=== PATIENT | male | born 1960 | race Caucasian/White ===

== ENCOUNTER 2022-06-18 10:33 | Emergency (ER) | payer BC, OTHER ==
[2022-06-18 12:04] LABS: SARS-COV-2 RT PCR NEGATIVE (NEGATIVE)
--- NOTE | 2022-06-18 12:22 | RAD REPORT ---
EXAM DESCRIPTION: RAD - Chest Pa And Lat (2 Views) - 06/18/2022 12:17 pm CLINICAL HISTORY: COUGH COMPARISON: CHEST PA AND LAT 2 VIEW dated 07/05/2014 FINDINGS: Lines: None. Lungs: No evidence of edema or pneumonia. Calcified nodule in the right lung base. Pleural: No significant pleural effusions or pneumothorax. Cardiac: The heart size is within normal limits. Mediastinum: Within normal limits. Bones: No acute fractures. Other: None IMPRESSION: No acute cardiopulmonary disease.
--- NOTE | 2022-06-18 12:56 | ER ---
Nurse's Notes [facility] Name: Raghu Garcia Age: 61 yrs Sex: Male : 1960 Arrival Date: 06/18/2022 Time: 10:34 Bed 10 Private MD: Franklin Cohen Diagnosis: Cough;Chronic memory problems Presentation: 06/18 10:46 Chief complaint: Patient states: he has had a "nagging cough" for approx 3 weeks now. ap3 and is wanting to get his memory checked because he has been "having memory issues for 2 years". It is reported that over the last two years patient will "space out when talking" and forget where he will going, will revert to old addresses. Patients son states the patient hasn't been seen by a DrGia in years. Coronavirus screen: cough unrelated to allergies. Ebola Screen: No symptoms or risks identified at this time. Initial Sepsis Screen: Does the patient meet any 2 criteria? No. Patient's initial sepsis screen is negative. Does the patient have a suspected source of infection? No. Patient's initial sepsis screen is negative. Risk Assessment: Do you want to hurt yourself or someone else? Patient reports no desire to harm self or others. Onset of symptoms was May 28, 2022. 10:46 Method Of Arrival: Ambulatory ap3 10:46 Acuity: GIDEON 3 ap3 Triage Assessment: 10:50 General: Appears in no apparent distress. Behavior is calm, cooperative. Pain:. Pain: ap3 Denies pain. Neuro: Level of Consciousness is awake, alert, obeys commands, Oriented to person, place, time, situation, Gait is steady. Neuro: Reports memory changes over the last two years. Cardiovascular: Patient's skin is warm and dry. Respiratory: Airway is patent Respiratory effort is even, unlabored, Respiratory pattern is regular, symmetrical. Respiratory: Reports cough that is since the last three weeks. Historical: - Allergies: 10:49 No Known Allergies; ap3 - Home Meds: 10:49 lisinopril Oral for hypertension [Active]; ap3 - PMHx: 10:49 Hypertensive disorder; ap3 - Immunization history:: Client reports having NOT received the Covid vaccine. Flu vaccine is not up to date. - Social history:: Smoking status: Patient reports the use of cigarette tobacco products, smokes one pack cigarettes per day. Screenin:51 [facility] ED Fall Risk Assessment (Adult) History of falling in the last 3 months, ap3 including since admission No falls in past 3 months (0 pts). Abuse screen: Denies threats or abuse. Nutritional screening: No deficits noted. Tuberculosis screening: No symptoms or risk factors identified. Assessment: 12:18 General: Appears in no apparent distress. comfortable, Behavior is calm, cooperative, kr3 appropriate for age. Neuro: Level of Consciousness is awake, alert, obeys commands, Oriented to person, place, time. Cardiovascular: Patient's skin is warm and dry. Respiratory: Airway is patent Trachea midline Respiratory effort is even, unlabored, Respiratory pattern is regular, symmetrical. GI: No signs and/or symptoms were reported involving the gastrointestinal system. : No signs and/or symptoms were reported regarding the genitourinary system. EENT: EENT: No signs and/or symptoms were reported regarding the EENT system. Derm: No signs and/or symptoms reported regarding the dermatologic system. Musculoskeletal: Circulation, motion, and sensation intact. Vital Signs: 10:46 BP 112 / 75; Pulse 70; Resp 17; Temp 98.7; Pulse Ox 100% ; Weight 99.79 kg; Height 5 ap3 ft. 4 in. (162.56 cm); 10:46 Body Mass Index 37.76 (99.79 kg, 162.56 cm) ap3 ED Course: 10:34 Patient arrived in ED. am2 10:34 Franklin Cohen MD is Private Physician. am2 10:49 Triage completed. ap3 10:51 Arm band placed on right wrist. ap3 10:54 Katherine Ortiz, BRANDIE is Primary Nurse. kr3 10:54 Placido Fall DO is Attending Physician. ms3 11:30 COVID-19/FLU A+B/RSV Sent. kr3 12:19 Chest Pa And Lat (2 Views) XRAY In Process Unspecified. EDMS 12:54 Franklin Cohen MD is Referral Physician. ms3 12:54 Iain Oneil MD is Referral Physician. ms3 13:33 No provider procedures requiring assistance completed. Patient did not have IV access ap3 during this emergency room visit. 13:34 Patient has correct armband on for positive identification. Adult w/ patient. ap3 Administered Medications: No medications were administered Medication: 13:34 VIS not applicable for this client. ap3 Outcome: 12:56 Discharge ordered by . ms3 13:34 Discharged to home ambulatory, with family. ap3 13:34 Condition: good 13:34 Discharge instructions given to patient, Instructed on discharge instructions, follow up and referral plans. medication usage, Demonstrated understanding of instructions, follow-up care, medications, Prescriptions given X 1. 13:34 Patient left the ED. ap3 Signatures: Dispatcher [employer] EDMS Layla Liriano am2 Layla Escalante, RN RN ap3 Placido Fall DO DO ms3 Katherine Ortiz, RN RN kr3
--- NOTE | 2022-06-18 12:57 | EDPHYS ---
Physician Documentation [facility] Name: Raghu Garcia Age: 61 yrs Sex: Male : 1960 Arrival Date: 06/18/2022 Time: 10:34 Bed 10 Private MD: Franklin Cohen ED Physician Placido Fall HPI: 06/18 12:56 This 61 yrs old Male presents to ER via Ambulatory with complaints of Altered Mental ms3 Status, Cough. 12:56 61-year-old male with past medical history of hypertension presents with his son for ms3 cough that began 3 weeks prior to arrival. Patient states the symptoms have not improved since onset. Patient has attempted taking [id number] cough syrup. Patient denies shortness of breath, fevers, chills. Patient states that cough is productive of white phlegm. Patient denies pain. Patient denies sick contacts.. Historical: - Allergies: 10:49 No Known Allergies; ap3 - Home Meds: 10:49 lisinopril Oral for hypertension [Active]; ap3 - PMHx: 10:49 Hypertensive disorder; ap3 - Immunization history:: Client reports having NOT received the Covid vaccine. Flu vaccine is not up to date. - Social history:: Smoking status: Patient reports the use of cigarette tobacco products, smokes one pack cigarettes per day. ROS: 12:56 Constitutional: Negative for fever, and chills. Neck: Negative for injury, pain, and ms3 swelling, Cardiovascular: Negative for chest pain, and palpitations. 12:56 Abdomen/GI: Negative for abdominal pain, nausea, vomiting, diarrhea, and constipation, MS/Extremity: Negative for injury and deformity. 12:56 Respiratory: Positive for cough. 12:56 Neuro: Positive for memory problems x 2 years. Exam: 12:56 Constitutional: This is a well developed, well nourished patient who is awake, alert, ms3 and in no acute distress. Head/Face: Normocephalic, atraumatic. Eyes: Pupils equal round and reactive to light, extra-ocular motions intact. Lids and lashes normal. Conjunctiva and sclera are non-icteric and not injected. Periorbital areas with no swelling, redness, or edema. Neck: Trachea midline, no cervical lymphadenopathy. Supple, full range of motion without nuchal rigidity, or vertebral point tenderness. No Meningismus. Chest/axilla: Normal chest wall appearance and motion. Nontender with no deformity. Cardiovascular: Regular rate and rhythm with a normal S1 and S2. No gallops, murmurs, or rubs. Normal PMI, no JVD. No pulse deficits. Respiratory: Lungs have equal breath sounds bilaterally, clear to auscultation and percussion. No rales, rhonchi or wheezes noted. No increased work of breathing, no retractions or nasal flaring. Abdomen/GI: Soft, non-tender, with normal bowel sounds. No distension or tympany. No guarding or rebound. No evidence of tenderness throughout. Skin: Warm, dry with normal turgor. Normal color with no rashes, no lesions, and no evidence of cellulitis. MS/ Extremity: Pulses equal, no cyanosis. Neurovascular intact. Full, normal range of motion. Vital Signs: 10:46 BP 112 / 75; Pulse 70; Resp 17; Temp 98.7; Pulse Ox 100% ; Weight 99.79 kg; Height 5 ap3 ft. 4 in. (162.56 cm); 10:46 Body Mass Index 37.76 (99.79 kg, 162.56 cm) ap3 MDM: 11:04 Patient medically screened. ms3 12:56 Differential Diagnosis: PNA vs Flu vs COVID vs CHF. . ED course: Less likely congestive ms3 heart failure as patient is without history of congestive heart failure, no pedal edema, no pulmonary edema on chest x-ray. Patient follow-up with his primary care physician in 2 to 3 days. Patient referred to Dr. Oneil, neurology, for chronic memory problems. Discussed plan with patient and his son. They understand and agree with plan. All questions were answered. Return precautions discussed include worsening symptoms, or any other concerns. Patient given prescription for Tessalon Perles.. 13:01 Data reviewed: vital signs, nurses notes, lab test result(s), radiologic studies, plain ms3 films. Counseling: I had a detailed discussion with the patient and/or guardian regarding: the historical points, exam findings, and any diagnostic results supporting the discharge/admit diagnosis, radiology results, the need for outpatient follow up, to return to the emergency department if symptoms worsen or persist or if there are any questions or concerns that arise at home. 01/06 11:05 Order name: COVID-19/FLU A+B/RSV; Complete Time: 12:07 ms3 06/18 11:05 Order name: Chest Pa And Lat (2 Views) XRAY; Complete Time: 12:38 ms3 Administered Medications: No medications were administered Disposition Summary: 06/18/22 12:56 Discharge Ordered Location: Home ms3 Condition: Stable ms3 Diagnosis - Cough ms3 - Chronic memory problems ms3 Followup: ms3 - With: Franklin Cohen MD - When: 2 - 3 days - Reason: Recheck today's complaints Followup: ms3 - With: Iain Oneil MD - When: 2 - 3 days - Reason: Recheck today's complaints Discharge Instructions: - Discharge Summary Sheet ms3 - Cough, Adult ms3 Forms: - Medication Reconciliation Form ms3 - Thank You Letter ms3 - Antibiotic Education ms3 - Prescription Opioid Use ms3 Prescriptions: - Tessalon Perles 100 mg Oral Capsule - take 1 capsule by ORAL route every 8 hours As needed; 15 capsule; Refills: 0, ms3 Product Selection Permitted Signatures: Dispatcher [employer] Layla Jaime RN RN ap3 Placido Fall DO DO ms3
[2022-06-18 13:40] VITALS: BP 112/75; TEMP 98.7; O2SAT 100
== END 2022-06-18 13:34 | disposition home or self-care (01) ==
LOC: ER 10:33
DX: R05.9 Cough, unspecified (principal); R41.3 Other amnesia; Z20.822 Contact with and (suspected) exposure to COVID-19; I10 Essential (primary) hypertension; F17.210 Nicotine dependence, cigarettes, uncomplicated
CPT/HCPCS: 0241U; 71046; 99283

== ENCOUNTER 2023-04-30 17:31 | Emergency (ER) | payer OTHER ==
--- OUTSIDE RECORDS SUMMARY | 2023-04-30 17:33 | XMS REPORT | Continuity of Care Document ---
:1960 Author Organization [facility] t Address [address] [place] [address] Care Team Providers Name Role Phone Pcp, Patient Does Not Have A Primary Care Physician [id number] KAUR Attending Clinician Unavailable Omaira Attending Clinician Unavailable Doctor Unassigned, [place] Attending Clinician Unavailable KEITH SIMMONS Attending Clinician Cindy Keith Gonzalez MD Attending Clinician KAUR Admitting Clinician Unavailable Omaira Admitting Clinician Unavailable KEITH SIMMONS Admitting Clinician Cindy Keith Gonzalez MD Admitting Clinician Payers Payer Name Policy Type Policy Number Effective Date Expiration Date [facility] [id number] Problems Condition Condition Condition Status Onset Resolution Last Treating Co mments Source Name Details Category Date Date Treatment Clinician Date Hyperlipid Hyperlipid Problem Active [facility] emia emia 5-10 da [facility] Body mass Body Mass Problem Active [facility] [place] index 30+ Index 30+ 5-10 da - obesity - Obesity 00:00: Epis copy clerk 00 al Health Outreac [facility] Program Chronic Chronic Problem Active [place] low back Low Back 5-10 da pain Pain 00:00: [facility] Screening Screening Problem Active [place] for for 5-10 da malignant Malignant 00:00: Epis copy clerk neoplasm Neoplasm 00 al of of Health respirator Respirator Ou treac y tract y Tract h Program Screening Screening Problem Active [place] for for 5-10 da malignant Malignant 00:00: Epis copy clerk neoplasm Neoplasm 00 al of of Health prostate Prostate Outrea c h Program Screening Screening Problem Active [place] for for 5-10 da malignant Malignant 00:00: Epis copy clerk neoplasm Neoplasm 00 al of colon of Colon Health Outreac h Program Pain of Pain of Problem Active [place] right Right 5-10 da shoulder Shoulder 00:00: [facility] p joint Joint 00 al Health Outreac [facility] Program Mixed Mixed Problem Active [place] anxiety Anxiety 5-04 da and and 00:00: [facility] depressive Depressive 00 al disorder Disorder Health Outreac h Program Smokes Smokes Problem Active [place] tobacco Tobacco 5-04 da daily Daily 00:00: [facility] Essential Essential Problem Active [place] hypertensi Hypertensi 5-04 da on on 00:00: [facility] Forgetful Forgetful Problem Active [place] 5-04 da 00:00: [facility] Chest pain Chest pain Disease Active U nivers 4-23 ity of 00:00: [address] Allergies, Adverse Reactions, Alerts Allergy Allergy Status Severity Reaction(s) Onset Inactive Treating Comm ents Source Name Type Date Date Clinician NO KNOWN Drug Active Univers ALLERGIE Class ity of S [facility] Social History Social Habit Start Date Stop Date Quantity Comments Source History of tobacco Cigarette Smoker University of use [facility] Exposure to 2022-09-23 2022-10-03 Not sure University of SARS-CoV-2 (event) 00:00:00 21:12:00 [facility] Tobacco use and 2022-10-03 2022-10-03 User of Universit y of exposure 00:00:00 00:00:00 smokeless [facility] Alcohol intake 2022-10-03 2022-10-03 Current drinker Unive rsity of 00:00:00 00:00:00 of alcohol [facility] (finding) [place] Alcohol Comment 2022-10-03 2022-10-03 minimal, Universit y of 00:00:00 00:00:00 socially [facility] Cigarettes smoked 2022-10-03 2022-10-03 Univers ity of current (pack per 00:00:00 00:00:00 [facility] ) - Reported Branch Cigarette 2022-10-03 2022-10-03 University of pack-years 00:00:00 00:00:00 [facility] Sex Assigned At [birth year] Universit y of 00:00:00 00:00:00 [facility] Smoking Status Start Date Stop Date Source Heavy Tobacco Smoker Bhupinder Francisco [employer] [facility] Smokes tobacco daily 2022-10-03 00:00:00 Univers ity [facility] Medications Ordered Filled Start Stop Current Ordering Indication Dosage Frequency Signature Comments Components Source Medication Medication Date Date Medication? Clinician (SIG) Name Name eligio Yes 40mg 40 mg, Univ ers n (LIPITOR) 4-25 Oral, QHS, it y of tablet 40 02:00: First dose [place] mg 00 on Mon Medical 10/04/22 at [place] 2100, Until Discontinu ed, Routine metoprolol Yes 12.5mg 12.5 mg, U nivers tartrate 4-25 Oral, BID, ity o f (LOPRESSOR) 01:00: First dose [place] tablet 12.5 00 on Mon Medica l mg 10/04/22 at [place] 2000, Until Discontinu ed, Routine aspirin 81 Yes [id number] 81mg Take 1 U nivers mg chewable 4-25 tablet by ity of tablet 00:00: mouth in [place] 00 the Medical morning. Branch nicotine 7 Yes [id number] 1{patch Apply 1 Univers mg/24 hr 4-25 } Patch to ity of patch 00:00: area(s) [place] 00 every 24 Medical (twenty-fo Branch ur) hours. aspirin 81 2022-0 Yes [id number] 81mg Take 1 U nivers mg chewable 4-25 tablet by ity of tablet 00:00: mouth in [place] 00 the Medical morning. Branch nicotine 7 Yes [id number] 1{patch Apply 1 Univers mg/24 hr 425 } Patch to ity of patch 00:00: area(s) [place] 00 every 24 Medical (twenty-fo Branch ur) hours. nicotine 2022-0 Yes 1{patch 1 Patch, Un neto (NICODERM) 24 } Topical, ity o f 7 mg/24 hr 20:15: Administer [place] patch 1 00 over 24 Medical Patch Hours, Branch Q24H, First dose on [facility] 10/04/22 at 1515, Until Discontinu ed, Routine lisinopriL 2022-0 Yes 20mg Take 1 Unive rs 20 mg 24 tablet by ity of tablet 17:19: mouth in [place] 43 the Medical morning. Branch lisinopriL 2022-0 Yes 20mg Take 1 Unive rs 20 mg 24 tablet by ity of tablet 17:19: mouth in [place] 43 the Medical morning. Branch aspirin 2022-0 Yes 81mg 81 mg, Univers chewable 10-04 Oral, ity of tablet 81 14:00: DAILY, [place] mg 00 First dose Medical on [facility] 10/04/22 at 0900, Until Discontinu ed, Routine lisinopriL 2022-0 Yes 2.5mg 2.5 mg, Uni vers (PRINIVIL,Z 10-04 Oral, ity of ESTRIL) 14:00: DAILY, [place] tablet 2.5 00 First dose Med ical mg on [facility] 10/04/22 at 0900, Until Discontinu ed, Routine enoxaparin 2022-0 Yes 40mg 40 mg, Unive rs (LOVENOX) 10-04 Subcutaneo ity of injection 14:00: us, DAILY, [place] 40 mg 00 First dose Medical on [facility] 10/04/22 at 0900, Until Discontinu ed, Routine KCL 2022-0 2022- No 20meq 20 mEq, Univers (KLOR-CON 10-04 Oral, ity of M20) tablet 05:15: 04:31 ONCE, 1 [place] 20 mEq 00 :00 dose, On Medical [facility] 10/04/22 at 0015, Routine magnesium 2022-0 2022- No 2g 2 g, IV Univ ers sulfate in 10-04 Piggyback, it y of water 2 05:00: 05:32 Administer Ced as gram/50 mL 00 :00 over 60 Medica l (4 %) Minutes, Branch infusion 2 ONCE, 1 g dose, On 10/04/22 at 0000, Routine acetaminoph 0 Yes 650mg 650 mg, Un neto en 4-24 Oral, ity of (TYLENOL) 02:47: Q6HPRN, [place] tablet 650 25 Starting Medic al mg on Sun Branch 10/03/22 at 2147, Until Discontinu ed, Routine, Pain (scale 1-3) atorvastati 0 Yes [id number] 40mg Take 1 Univers n 40 mg 4-24 tablet by ity of tablet 00:00: mouth at [place] 00 bedtime. Medical Branch metoprolol Yes [id number] 12.5mg Take 0.5 Univers tartrate 25 4-24 tablets by it y of mg tablet 00:00: [place] the Medical morning Branch and 0.5 tablets in the evening. atorvastati Yes [id number] 40mg Take 1 Univers n 40 mg 4-24 tablet by ity of tablet 00:00: mouth at [place] 00 bedtime. Medical Branch metoprolol Yes [id number] 12.5mg Take 0.5 Univers tartrate 25 4-24 tablets by it y of mg tablet 00:00: [place] the Medical morning Branch and 0.5 tablets in the evening. cholecalcif cholecalcif No 1capsul Q1D cholecalci [place] delaney delaney e(s) ferol da (vitamin (vitamin (vitamin Epi scop D3) 125 mcg D3) 125 mcg D3) 125 al (5,000 (5,000 mcg (5,000 Healt h unit) unit) unit) Outreac capsule capsule capsule h Take 1 Take 1 Take 1 Program capsule capsule capsule every day every day every day by oral by oral by oral route. route. route. lisinopril lisinopril No 1 Q1D lisinopril [place] 10 mg 10 mg 10 mg da tablet Take tablet Take tablet [facility] 1 tablet 1 tablet Take 1 al every day every day tablet Hea lth by oral by oral every day Outr eac route. route. by oral h route. Program sertraline sertraline No sertraline [place] 50 mg 50 mg 50 mg da tablet TAKE tablet TAKE tablet [facility] 1 TABLET BY 1 TABLET BY TAKE 1 al MOUTH ONCE MOUTH ONCE TABLET BY Health DAILY DAILY MOUTH ONCE Outreac DAILY h Program Vitamin B12 Vitamin B12 No Vitamin [place] 1000 mcg 1000 mcg B12 1000 da tablet 1 tablet 1 mcg tablet E piscop p.o. daily p.o. daily 1 p.o. a l daily Health Outreac h Program lisinopril lisinopril No lisinopril [place] 20 mg 20 mg 20 mg da tablet TAKE tablet TAKE tablet [facility] 1 TABLET BY 1 TABLET BY TAKE 1 al MOUTH ONCE MOUTH ONCE TABLET BY Health DAILY DAILY MOUTH ONCE Outreac DAILY h Program sertraline sertraline No sertraline [place] 50 mg 50 mg 50 mg da tablet TAKE tablet TAKE tablet [facility] 1 TABLET BY 1 TABLET BY TAKE 1 al MOUTH ONCE MOUTH ONCE TABLET BY Health DAILY DAILY MOUTH ONCE Outreac DAILY h Program lisinopril lisinopril No lisinopril [place] 20 mg 20 mg 20 mg da tablet TAKE tablet TAKE tablet [facility] 1 TABLET BY 1 TABLET BY TAKE 1 al MOUTH ONCE MOUTH ONCE TABLET BY Health DAILY DAILY MOUTH ONCE Outreac DAILY h Program sertraline sertraline No sertraline [place] 50 mg 50 mg 50 mg da tablet TAKE tablet TAKE tablet [facility] 1 TABLET BY 1 TABLET BY TAKE 1 al MOUTH ONCE MOUTH ONCE TABLET BY Health DAILY DAILY MOUTH ONCE Outreac DAILY h Program Vital Signs Vital Name Observation Time Observation Value Comments Source BP Diastolic 2022-12-13 00:00:00 68 mm[Hg] [facility] Height 2022-12-13 00:00:00 64 [in_i] [facility] BMI (Body Mass 2022-12-13 00:00:00 34.7 kg/m2 [facility] 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 Index) [facility] BP Systolic 2022-12-13 00:00:00 104 mm[Hg] [facility] Body Weight 2022-12-13 00:00:00 3238 [oz_av] [facility] BP Diastolic 2022-10-20 00:00:00 64 mm[Hg] [place] [facility] Height 2022-10-20 00:00:00 64 [in_i] [place] [facility] BMI (Body Mass 2022-10-20 00:00:00 35.4 kg/m2 [facility] 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 Index) [facility] BP Systolic 2022-10-20 00:00:00 99 mm[Hg] [place] [facility] Body Weight 2022-10-20 00:00:00 3300 [oz_av] [place] [facility] BP Diastolic 2022-10-14 00:00:00 74 mm[Hg] [place] [facility] Height 2022-10-14 00:00:00 64 [in_i] [place] [facility] BMI (Body Mass 2022-10-14 00:00:00 35.2 kg/m2 [facility] 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 Index) [facility] BP Systolic 2022-10-14 00:00:00 111 mm[Hg] [place] [facility] Body Weight 2022-10-14 00:00:00 3282 [oz_av] [place] [facility] Systolic blood 2022-10-04 16:03:00 110 [facility]Hg[facility] 2022-10-04 16:03:00 74 mm[facility]Hg] [facility] 2022-10-04 16:03:00 61 /min [facility] Body temperature 2022-10-04 16:03:00 36.44 Tonia [facility] Respiratory rate 2022-10-04 16:03:00 18 /min [facility] Oxygen saturation in 2022-10-04 16:03:00 97 /min [facility] Arterial blood by [facility] Pulse oximetry Branch Body weight 2022-10-04 02:20:00 90.629 kg [facility] Procedures Procedure Date / Time Performing Clinician Source Performed LDCT, chest, for lung 2022-12-13 00:00:00 [facility] cancer screening [facility] LDCT, chest, for lung 2022-10-20 00:00:00 [facility] 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 [facility] cancer screening [facility] XR, shoulder, 2 or more 2022-10-14 00:00:00 Arron mitchella [facility] XR, lumbosacral spine, 2022-10-14 00:00:00 Calebelizabeth titusnatasha [facility] 2 or 3 view Health Outreach Program EXTERNAL PROVIDER 2022-10-11 05:01:00 Doctor Unassigned, No [facility] RECORDS Name Medical Branch TROPONIN I 2022-10-04 09:33:00 Brock [facility] MAGNESIUM 2022-10-04 03:[facility]22-10-04 [facility] THYRO[facility] 2022-10-04 03:21:00 Jhonatan Gutiérrez [facility] HORMONE [facility] Branch HEPATIC FUNCTION PANEL 2022-10-04 03:21:[address] [facility] ([id number]) (ALB,T.PRO,BILI Medical Branch T,BU/BC,ALT,AST,ALK PHOS) BASIC METABOLIC PANEL 2022-10-04 03:21:00 Brock [facility] (NA, K, CL, CO2, Medical Branch GLUCOSE, BUN, CREATININE, CA) LIPID PANEL 2022-10-04 03:21:[address] [facility] ([id number])(TOTAL Medical Branch CHOLESTEROL, TRIGLYCERIDES, HDL) CBC WITH DIFF 2022-10-04 03:21[facility] GLYCOSYLATED HEMOGLOBIN 2022-10-04 03:21:00 [facility] PROTHROMBIN TIME / INR 2022-10-04 03:21:00 Brock Jhonatan [facility] Plan of Care Planned Activity Planned Date Details Comments Source Future Scheduled 2023-04-13 HIV 1 + 2, meaningful [place] Test 00:00:00 use set [code = [facility] + 2, meaningful use Outreach Program set] Future Scheduled 2023-04-13 vitamin D, [place] Test 00:00:00 25-hydroxy, total, [facility] serum [code = vitamin Outrea Program D, 25-hydroxy, total, serum] Future Scheduled 2023-04-13 RPR (rapid plasma [place] 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 Test 00:00:00 reagin), serum [code [facility] = RPR (rapid plasma Outreach Program reagin), serum] Future Scheduled 2023-04-13 testosterone, free + [place] Test 00:00:00 total, serum [code = [facility] testosterone, free + Outreac h Program total, serum] Future Scheduled 2023-04-13 lh + FSH, serum [code [place] Test 00:00:00 = lh + FSH, serum] [facility] Outreach Progra Future Scheduled 2023-04-13 prolactin, serum [place] Test 00:00:00 [code = prolactin, [facility] serum] Outreach Progra m Future Scheduled 2023-04-13 CMP, serum or plasma [place] Test 00:00:00 [code = CMP, serum or [facility] plasma] Outreach Progra m Future Scheduled 2023-04-13 CBC w/ auto diff [place] Test 00:00:00 [code = [facility]/ [facility]] Outreach Progra m Future Scheduled 2023-04-13 lipid panel, serum [place] Test 00:00:00 [code = lipid panel, [facility] serum] Outreach Progra m Future Scheduled 2023-04-13 urinalysis complete, [place] Test 00:00:00 reflex culture [code [facility] = urinalysis Outreach Progra complete, reflex culture] Diagnostic Test 2022-10-20 noninvasive [place] Pending 00:00:00 colorectal cancer DNA [facility] + occult blood Outreach Prog som screening, QL, stool [code = noninvasive colorectal cancer DNA + occult blood screening, QL, stool] Encounters Start End Encounter Admission Attending Care Care Encounter Source Date/Time Date/Time Type Type Clinicians Facility Department ID 2022-12-13 2022-12-13 Outpatient SHIMEK_MARY MEHOP [facility]OP [id number] [place] 00:00:00 00:00:00 _ANN [id number] [facility] 2022-12-13 2022-12-13 Outpatient AYO WESLEY MEHOP [id number] [place] 00:00:00 00:00:00 _ANN [id number] [facility] 2022-12-13 2022-12-13 Outpatient AYO WESLEY MEHOP [id number] [place] 00:00:00 00:00:00 _ANN [id number] [facility] 2022-12-13 2022-12-13 Outpatient AYO LESTERHOP MEHOP [id number] [place] 00:00:00 00:00:00 _ANN [id number] [facility] 2022-12-13 2022-12-13 Zuri Erwin [facility] [place] - [id number] [place] 00:00:00 00:00:00 Bhupinder Brown FORM LAYER: 1700 [facility] [address] [id number] h , Ph. Program 2022-12-07 2022-12-07 Outpatient AYO WESLEY MEHOP [id number] [place] 00:00:00 00:00:00 _ANN [id number] da [facility] 2022-12-06 2022-12-06 Outpatient Omaira WESLEY [facility] 124 [id number] [place] 00:00:00 00:00:00 [id number] da [facility] 2022-10-20 2022-10-20 Jerome [facility] [place] - [id number] M atagor 00:00:00 00:00:00 Sobia: [address], [facility] [address] [facility] ac , Ph. h (979) Program 2022-10-15 2022-10-15 Outpatient Omaira [facility] [id number] [place] 00:00:00 00:00:00 [id number] da [facility] 2022-10-14 2022-10-14 Outpatient Omaira [facility] [id number] [place] 00:00:00 00:00:00 [id number] da [facility] 2022-10-14 2022-10-14 Outpatient Sobia_Jerome [facility] [id number] [place] 00:00:00 00:00:00 [id number] [facility] 2022-10-14 [facility]22[facility]10-[facility] [id number] M at[facility]or 00:00:00 00:00:00 [place]: 1700 Bhupinder Taylor [facility] [place], [facility] [address] [facility] , Ph. h (979) Program 2022-10-13 2022-10-13 Outpatient Sobia_Jerome [facility] 124 [id number] [place] 00:00:00 00:00:00 [id number] da [facility] 2022-10-11 2022-10-11 Orders Doctor STACIE [id number] Univers 00:00:00 00:00:00 Only Unassigned, SILVER [id number] ity of [place] [facility] [id number] Ced as [id number] [place] [id number] Branch 2022-10-06 2022-10-06 Outpatient Sobia_Jerome [facility] 124 [id number] [place] 00:00:00 00:00:00 [id number] [facility] 2022-10-06 2022-10-06 Outpatient Sobia_Jerome [facility] 124 [id number] [place] 00:00:00 00:00:00 [id number] [facility] 2022-10-06 2022-10-06 Outpatient Sobia_Jerome [facility] 124 [id number] [place] 00:00:00 00:00:00 [id number] [facility] 2022-10-03 2022-10-04 [facility] [id number] [facility] 20:46:00 17:19:00 MOSTAFA ity of [facility] 2022-10-03 2022-10-04 [facility] COLEEN Simmons [id number] [facility] 20:46:00 17:19:00 Encounter Keith SHEPPARD [id number] ity of [facility] [id number] [facility] [id number] [place] [address] Branch Results Test Description Test Time Test Comments Results Result Comments Source Free T4 and TSH panel - Serum or Plasma 2022-10-16 00:00:00 Test Item Value Reference Range Interpretation Comme nts Thyrotropin [Units/volume] in Serum or Plasma by 0.791 uIU/mL 0.450 -4.500 Detection limit <= 0.005 mIU/L (test code = 18359-5) Thyroxine (T4) free [Mass/volume] in Serum or Plasma 1.26 NG/dL 0 .82-1.77 (test code = 3024-7) [facility] Outreach [facility] W Auto Differential panel - Blood 2022-10-16 00:00:00 Test Item Value Reference Range Interpretation Comments Leukocytes [#/volume] in Blood 6.1 x10e3/uL 3.4-10.8 by Automated count (test code = 6690-2) Erythrocytes [#/volume] in 5.24 x10e6/uL 4.14-5.80 Blood by Automated count (test code = 789-8) Hemoglobin [Mass/volume] in 16.6 g/dL 13.0-17.7 Blood (test code = 718-7) Hematocrit [Volume Fraction] of 46.7 % 37.5-51.0 Blood by Automated count (test code = 4544-3) Erythrocyte mean corpuscular 89 fL 79-97 volume [Entitic volume] by Automated count (test code = 787-2) Erythrocyte mean corpuscular 31.7 pg 26.6-33.0 hemoglobin [Entitic mass] by Automated count (test code = 785-6) Erythrocyte mean corpuscular 35.5 g/dL 31.5-35.7 hemoglobin concentration [Mass/volume] by Automated count (test code = 786-4) Erythrocyte distribution width 13.0 % 11.6-15.4 [Ratio] by Automated count (test code = 788-0) Platelets [#/volume] in Blood 209 x10e3/uL 150-450 by Automated count (test code = 777-3) Neutrophils/100 leukocytes in 68 % not estab. Blood by Automated count (test code = 770-8) Lymphocytes/100 leukocytes in 22 % not estab. Blood by Automated count (test code = 736-9) Monocytes/100 leukocytes in 7 % not estab. Blood by Automated count (test code = 5905-5) Eosinophils/100 leukocytes in 2 % not estab. Blood by Automated count (test code = 713-8) Basophils/100 leukocytes in 1 % not estab. Blood by Automated count (test code = 706-2) immature cells (test code = research and development specialist immature cells) Neutrophils [#/volume] in Blood 4.2 x10e3/uL 1.4-7.0 by Automated count (test code = 751-8) Lymphocytes [#/volume] in Blood 1.3 x10e3/uL 0.7-3.1 by Automated count (test code = 731-0) Monocytes [#/volume] in Blood 0.4 x10e3/uL 0.1-0.9 by Automated count (test code = 742-7) Eosinophils [#/volume] in Blood 0.1 x10e3/uL 0.0-0.4 by Automated count (test code = 711-2) Basophils [#/volume] in Blood 0.1 x10e3/uL 0.0-0.2 by Automated count (test code = 704-7) Immature granulocytes/100 0 % not estab. leukocytes in Blood by Automated count (test code = 45354-9) Immature granulocytes 0.0 x10e3/uL 0.0-0.1 [#/volume] in Blood by Automated count (test code = 83960-2) Nucleated erythrocytes/100 research and development specialist leukocytes [Ratio] in Blood by Automated count (test code = 92404-3) Morphology [Interpretation] in research and development specialist Blood Narrative (test code = 97356-7) [facility] panel - Serum or Xuayco0165-04-23 00:00:00 Test Item Value Reference Range Interpretation Comments Glucose [Mass/volume] in Serum 100 mg/dL 70-99 H or Plasma (test code = 2345-7) Urea nitrogen [Mass/volume] in 10 mg/dL 8-27 Serum or Plasma (test code = 3094-0) Creatinine [Mass/volume] in 0.97 mg/dL 0.76-1.27 Serum or Plasma (test code = 2160-0) Glomerular filtration 88 mL/min/1.73 >59 rate/1.73 sq M.predicted [Volume Rate/Area] in Serum, Plasma or Blood by Creatinine-based formula (CKD-EPI 2020) (test code = 04804-9) Urea nitrogen/Creatinine [Mass 10 10-24 Ratio] in Serum or Plasma (test code = 3097-3) Sodium [Moles/volume] in Serum 138 mmol/L 134-144 or Plasma (test code = 2951-2) Potassium [Moles/volume] in 4.4 mmol/L 3.5-5.2 Serum or Plasma (test code = 2823-3) Chloride [Moles/volume] in 100 mmol/L 96-106 Serum or Plasma (test code = 2074-0) Carbon dioxide, total 25 mmol/L 20-29 [Moles/volume] in Serum or Plasma (test code = 2027-) Calcium [Mass/volume] in Serum 9.2 mg/dL 8.6-10.2 or Plasma (test code = 55428-6) Protein [Mass/volume] in Serum 7.0 g/dL 6.0-8.5 or Plasma (test code = 2885-2) Albumin [Mass/volume] in Serum 4.5 g/dL 3.8-4.8 or Plasma (test code = 1751-7) Globulin [Mass/volume] in 2.5 g/dL 1.5-4.5 Serum by calculation (test code = 53013-6) Albumin/Globulin [Mass Ratio] 1.8 1.2-2.2 in Serum or Plasma (test code = 1759-0) Bilirubin.total [Mass/volume] 0.7 mg/dL 0.0-1.2 in Serum or Plasma (test code = 1974-2) Alkaline phosphatase 72 IU/L 44-121 [Enzymatic activity/volume] in Serum or Plasma (test code = 6768-6) Aspartate aminotransferase 11 IU/L 0-40 [Enzymatic activity/volume] in Serum or Plasma (test code = 1920-8) Alanine aminotransferase 11 IU/L 0-44 [Enzymatic activity/volume] in Serum or Plasma (test code = 1742-6) [facility] - Serum or Plasma 2022-10-16 00:00:00 Test Item Value Reference Range Interpretation Comments Cholesterol [Mass/volume] in Serum 159 mg/dL 100-199 or Plasma (test code = 2093-3) Triglyceride [Mass/volume] in Serum 91 mg/dL 0-149 or Plasma (test code = 2571-8) Cholesterol in HDL [Mass/volume] in 39 mg/dL >39 L Serum or Plasma (test code = 2085-9) Cholesterol in VLDL [Mass/volume] 17 mg/dL 5-40 in Serum or Plasma by calculation (test code = 28223-7) Cholesterol in LDL [Mass/volume] in 103 mg/dL 0-99 H Serum or Plasma by calculation (test code = 30704-9) Laboratory comment [Text] in Report research and development specialist Narrative (test code = 90763-6) [facility]Cyanocobalamin [Interpretation] in Serum or [id number] 00:00:00 Test Item Value Reference Range Interpretation Comments Cobalamin (Vitamin B12) 350 pg/mL 232-1245 [Mass/volume] in Serum or Plasma (test code = 2132-9) Folate [Mass/volume] in Serum or 3.8 NG/mL >3.0 Plasma (test code = 2284-8) [facility], serum or [id number] 00:00:00 Test Item Value Reference Range Interpretation Comments Prostate specific Ag [Mass/volume] 0.3 NG/mL 0.0-4.0 in Serum or Plasma (test code = 2857-1) reflex criteria (test code = reflex comment criteria) [facility] Center[facility]em[facility] A1c/Hemoglobin.total in [id number] 00:00:00 Test Item Value Reference Range Interpretation Comments Hemoglobin A1c/Hemoglobin.total in 5.1 % 4.8-5.6 Blood (test code = 4548-4) [facility]25-Hydroxyvitamin D3+25- Hydroxyvitamin D2 [Mass/volume] in Serum or [id number] 00:00:00 Test Item Value Reference Range Interpretation Comments 25-Hydroxyvitamin 25.3 NG/mL 30.0-100.0 L D3+25-Hydroxyvitamin D2 [Mass/volume] in Serum or Plasma (test code = 19560-0) [facility] CenterNatriuretic peptide B [Mass/volume] in Serum or [id number] 00:00:00 Test Item Value Reference Range Interpretation Comments Natriuretic peptide B 12.2 pg/mL 0.0-100.0 [Mass/volume] in Serum or Plasma (test code = 85130-3) [facility] Center[facility]rate [Mass/volume] in Serum or [id number] 00:00:00 Test Item Value Reference Range Interpretation Comments Urate [Mass/volume] in Serum or 5.8 mg/dL 3.8-8.4 Plasma (test code = 3084-1) [facility] Centercardi[facility] assessment panel, [id number] 00:00:00 Test Item Value Reference Range Interpretation Comments Interpretation and review of laboratory note results (test code = 95084-9) Report (test code = 97147-9) . [facility] CenterTRMANAS [id number] 10:09:21 Test Item Value Reference Range Interpretation Comments TROPONIN I (test code = 0.003 ng/mL <=0.034 [id number]) TERESA (test code = TERESA) Reference (Normal) Range (defined by the 99th percentile reference limit): <= 0.034 ng/mL Note: Cardiac troponin begins to rise 3-4 hours after the onset of ischemia. Repeat in 4-6 hours if the sample was drawn within 3-4 hours of the onset of the symptom and found normal. Diagnosis of myocardial injury is made with acute changes in cTn concentrations with at least one serial sample above the 99th percentile upper reference limit (URL), taken together with the patient's clinical presentation. Biotin has been reported to cause a negative bias, interpret results relative to patient's use of biotin. Lab Interpretation Normal (test code = 08871-7) [facility]
[2023-04-30] MEDS ORDERED: HYDROCODONE/CHLORPHEN 5 ML/OSYR ONE (18:06)
[2023-04-30] MEDS ORDERED: IPRATROPIUM BROM 0.5MG/2.5ML ONE (18:06)
[2023-04-30] MEDS ORDERED: ALBUTEROL 2.5 MG/3 ML NEB SOL ONE (18:06)
--- NOTE | 2023-04-30 19:04 | RAD REPORT ---
EXAM DESCRIPTION: Saundra Single View04/30/2023 6:56 pm CLINICAL HISTORY: Cough COMPARISON: June 2022 FINDINGS: The lungs appear clear of acute infiltrate. The heart is normal size IMPRESSION: No acute abnormalities displayed
--- NOTE | 2023-04-30 19:11 | ER ---
Nurse's Notes [facility] Name: Raghu Garcia Age: 62 yrs Sex: Male : 1960 Arrival Date: 04/30/2023 Time: 17:31 Bed 12 Private MD: Diagnosis: Acute bronchitis, unspecified Presentation: 04/30 17:42 Chief complaint: Patient states: Fever, Chills, Cough \T\ Congestion X 1 week. ld1 Coronavirus screen: At this time, the client does not indicate any symptoms associated with coronavirus-19. Ebola Screen: No symptoms or risks identified at this time. Risk Assessment: Do you want to hurt yourself or someone else? Patient reports no desire to harm self or others. Onset of symptoms was April 30, 2023. 17:42 Method Of Arrival: Ambulatory ld1 17:42 Acuity: GIDEON 4 ld1 17:43 Initial Sepsis Screen: Does the patient meet any 2 criteria? No. Patient's initial ld1 sepsis screen is negative. Does the patient have a suspected source of infection? No. Patient's initial sepsis screen is negative. Triage Assessment: 17:42 General: Appears in no apparent distress. comfortable, Behavior is calm, cooperative, ld1 appropriate for age. Pain: Denies pain. EENT: No signs and/or symptoms were reported regarding the EENT system. Neuro: Level of Consciousness is awake, alert, obeys commands, Oriented to person, place, time, situation. Cardiovascular: Capillary refill < 3 seconds Patient's skin is warm and dry. Respiratory: Airway is patent Respiratory effort is even, unlabored. GI: Abdomen is round non-distended. : No signs and/or symptoms were reported regarding the genitourinary system. Derm: No signs and/or symptoms reported regarding the dermatologic system. Musculoskeletal: No signs and/or symptoms reported regarding the musculoskeletal system. Historical: - Allergies: 17:42 No Known Allergies; ld1 - PMHx: 17:42 Hypertensive disorder; ld1 - Immunization history:: Adult Immunizations up to date. - Social history:: Smoking status: Patient reports the use of cigarette tobacco products, smokes one pack cigarettes per day. Patient/guardian denies using alcohol. Screenin:07 [facility] ED Fall Risk Assessment (Adult) History of falling in the last 3 months, tm6 including since admission No falls in past 3 months (0 pts). Abuse screen: Denies threats or abuse. Denies injuries from another. Nutritional screening: No deficits noted. Tuberculosis screening: No symptoms or risk factors identified. Assessment: 18:06 Reassessment: see triage assessment. tm6 18:38 Reassessment: Patient appears in no apparent distress at this time. Patient and/or ld1 family updated on plan of care and expected duration. Pain level reassessed. Patient is alert, oriented x 3, equal unlabored respirations, skin warm/dry/pink. Vital Signs: 17:43 BP 107 / 83; Pulse 81; Resp 18; Temp 98.1(O); Pulse Ox 97% on R/A; Height 5 ft. 7 in. ; ld1 Pain 0/10; 18:06 BP 105 / 77; Pulse 72; Resp 19; Pulse Ox 99% ; tm6 18:39 BP 108 / 77; Pulse 78; Pulse Ox 95% on R/A; ld1 19:26 BP 110 / 81; Pulse 87; Pulse Ox 100% on R/A; ap3 17:43 Pain Scale: Adult ld1 ED Course: 17:33 Patient arrived in ED. rg4 17:34 Minerva Dick FNP is [facility]. jh7 17:34 Jone Whatley MD is Attending Physician. jh7 17:42 Triage completed. ld1 17:42 Arm band placed on right wrist. ld1 17:49 Trinidad Villalobos, RN is Primary Nurse. tm6 18:07 Patient has correct armband on for positive identification. Provided Education on: need tm6 for breathing treatment. Client placed on continuous cardiac and pulse oximetry monitoring. NIBP monitoring applied. Door closed. Noise minimized. 18:07 No provider procedures requiring assistance completed. tm6 18:58 XRAY Chest (1 view) In Process Unspecified. EDMS 19:26 Patient did not have IV access during this emergency room visit. ap3 Administered Medications: 17:58 Drug: DuoNeb Nebulize (2.5 mg - 0.5 mg) 3 ml Nebulizer once Route: Nebulizer; ld1 17:58 Drug: Tussionex Pennkinetic ER PO Suspension 5 ml PO once Route: PO; ld1 Medication: 18:08 VIS not applicable for this client. tm6 Outcome: 19:11 Discharge ordered by . hank 19:26 Discharged to home ambulatory, with family, ap3 19:26 Condition: good 19:26 Discharge instructions given to patient, Instructed on discharge instructions, follow up and referral plans. medication usage, Demonstrated understanding of instructions, follow-up care, medications, Prescriptions given X 3, 19:27 Patient left the ED. ap3 Signatures: Dispatcher [employer] EDMS Veronica Saldaña rg4 Layla Escalante RN RN ap3 Praveena Fall RN RN ld1 Minerva Dick, WATER FILTRATION TECHNICIAN WATER FILTRATION TECHNICIAN 7 Trinidad Villalobos RN RN tm6
--- NOTE | 2023-04-30 19:12 | EDPHYS ---
Physician Documentation [facility] Name: Raghu Garcia Age: 62 yrs Sex: Male : 1960 Arrival Date: 04/30/2023 Time: 17:31 Bed 12 Private MD: ED Physician Jone Whatley HPI: 04/30 17:42 This 62 yrs old Male presents to ER via Ambulatory with complaints of Flu Symptoms. [facility] 17:42 Onset: The symptoms/episode began/occurred 1 week(s) ago. 62-year-old male presents to [facility] the ER for hacking cough. He reports that 1 week ago he had fever, body aches, and chills for 3 days. Now he reports persistent cough with an itching in the back of his throat. Reports that his fever has resolved. History of hypertension.. Historical: - Allergies: 17:42 No Known Allergies; ld1 - PMHx: 17:42 Hypertensive disorder; ld1 - Immunization history:: Adult Immunizations up to date. - Social history:: Smoking status: Patient reports the use of cigarette tobacco products, smokes one pack cigarettes per day. Patient/guardian denies using alcohol. ROS: 17:42 Constitutional: Negative for fever, chills, and weight loss, Eyes: Negative for injury, [facility] pain, redness, and discharge, Neck: Negative for injury, pain, and swelling, Cardiovascular: Negative for chest pain, palpitations, and edema, Abdomen/GI: Negative for abdominal pain, nausea, vomiting, diarrhea, and constipation, Back: Negative for injury and pain, MS/Extremity: Negative for injury and deformity, Skin: Negative for injury, rash, and discoloration, Neuro: Negative for headache, weakness, numbness, tingling, and seizure, 17:42 ENT: Positive for nasal discharge, 17:42 Respiratory: Positive for cough, Negative for shortness of breath, 17:42 All other systems are negative, Exam: 17:42 Constitutional: This is a well developed, well nourished patient who is awake, alert, [facility] and in no acute distress. Head/Face: Normocephalic, atraumatic. Neck: Trachea midline, no thyromegaly or masses palpated, and no cervical lymphadenopathy. Supple, full range of motion without nuchal rigidity, or vertebral point tenderness. No Meningismus. Cardiovascular: Regular rate and rhythm with a normal S1 and S2. No gallops, murmurs, or rubs. Normal PMI, no JVD. No pulse deficits. Respiratory: Lungs have equal breath sounds bilaterally, clear to auscultation and percussion. No rales, rhonchi or wheezes noted. No increased work of breathing, no retractions or nasal flaring. Abdomen/GI: Soft, non-tender, with normal bowel sounds. No distension or tympany. No guarding or rebound. No evidence of tenderness throughout. Back: No spinal tenderness. No costovertebral tenderness. Full range of motion. Skin: Warm, dry with normal turgor. Normal color with no rashes, no lesions, and no evidence of cellulitis. MS/ Extremity: Pulses equal, no cyanosis. Neurovascular intact. Full, normal range of motion. Neuro: Awake and alert, GCS 15, oriented to person, place, time, and situation. Motor strength 5/5 in all extremities. Sensory grossly intact. Normal gait. 17:42 ENT: Nose: nasal drainage, and is seen coming from both nares, that is clear, Posterior pharynx: pooling of secretions, that are mild, 17:42 Respiratory: the patient does not display signs of respiratory distress, Respirations: normal, Breath sounds: are clear throughout, Respiratory rate: 18 Persistent, hacking cough, Vital Signs: 17:43 BP 107 / 83; Pulse 81; Resp 18; Temp 98.1(O); Pulse Ox 97% on R/A; Height 5 ft. 7 in. ; ld1 Pain 0/10; 18:06 BP 105 / 77; Pulse 72; Resp 19; Pulse Ox 99% ; tm6 18:39 BP 108 / 77; Pulse 78; Pulse Ox 95% on R/A; ld1 19:26 BP 110 / 81; Pulse 87; Pulse Ox 100% on R/A; ap3 17:43 Pain Scale: Adult ld1 MDM: 17:34 Patient medically screened. jh7 19:10 Differential diagnosis: viral Infection, bacterial infection, URI, bronchitis, jh7 pneumonia. Data reviewed: vital signs, nurses notes, radiologic studies, plain films. I considered the following discharge prescriptions or medication management in the emergency department Medications were administered in the Emergency Department. See MAR. Independent interpretation of the following test(s) in the Emergency Department X-Ray: My interpretation is no pneumonia. Care significantly affected by the following chronic conditions: Hypertension. Counseling: I had a detailed discussion with the patient and/or guardian regarding the historical points, exam findings, and any diagnostic results supporting the discharge/admit diagnosis, to return to the emergency department if symptoms worsen or persist or if there are any questions or concerns that arise at home. Response to treatment: the patient's symptoms have markedly improved after treatment. 04/30 17:45 Order name: XRAY Chest (1 view); Complete Time: 19:06 [facility] Administered Medications: 17:58 Drug: DuoNeb Nebulize (2.5 mg - 0.5 mg) 3 ml Nebulizer once Route: Nebulizer; ld1 17:58 Drug: Tussionex Pennkinetic ER PO Suspension 5 ml PO once Route: PO; ld1 Disposition Summary: 04/30/23 19:11 Discharge Ordered Notes: Location: Home [facility] Problem: new [facility] Symptoms: have improved [facility] Condition: Stable [facility] Diagnosis - Acute bronchitis, unspecified [facility] Followup: [facility] - With: Private Physician - When: 2 - 3 days - Reason: Recheck today's complaints Discharge Instructions: - Discharge Summary Sheet [facility] - Acute Bronchitis, Adult [facility] Forms: - Medication Reconciliation Form [facility] - Thank You Letter [facility] - Antibiotic Education [facility] - Patient Portal Instructions [facility] - Leadership Thank You Letter [facility] Prescriptions: - albuterol sulfate 90 mcg/actuation Inhalation HFA Aerosol Inhaler - inhale 1 inhalation INHALATION route every 4 to 6 hours As needed; 1 Each; [facility] Refills: 0, Product Selection Permitted - Tessalon Perles 100 mg Oral Capsule - take 1 capsule ORAL route every 8 hours As needed; 15 capsule; Refills: 0, [facility] Product Selection Permitted - Medrol (Pelon) 4 mg Oral Tablets, Dose Pack - take 1 tablet ORAL route as directed - follow package instructions; 1 packet; [facility] Refills: 0, Product Selection Permitted Signatures: Dispatcher [employer] Praveena Clemens RN RN ld1 Minerva Dick, HOSPICE CASE MANAGER HOSPICE CASE MANAGER [facility]
[2023-04-30 20:13] VITALS: TEMP 98.1
[2023-04-30 20:17] VITALS: BP 110/81; O2SAT 100
== END 2023-04-30 19:27 | disposition home or self-care (01) ==
LOC: ER 17:31
DX: J20.9 Acute bronchitis, unspecified (principal); I10 Essential (primary) hypertension; F17.210 Nicotine dependence, cigarettes, uncomplicated
CPT/HCPCS: 71045; 94640; 99284; J7613; J7644

== ENCOUNTER 2024-06-09 10:27 | Emergency (ER) | payer OTHER ==
--- OUTSIDE RECORDS SUMMARY | 2024-06-09 10:30 | XMS REPORT | Continuity of Care Document ---
Author Name Unknown Address [address] [place] [address] [facility] thconnect Address [address] [place] [address] Care Team Providers Care Sewer Hand Name Role Phone Pcp, Patient Does Not Have A Primary Care Physic bladimir KAUR Attending Clinician Unavailable Omaira Attending Clinician Unavailable Doctor Unassigned, [place] Attending Clinician U KEITH Zaragoza Attending C linician Unavailable Iris JONES, Keith Shearer Attendin g Clinician KAUR Admitting Clinician Unavailable Omaira Admitting Clinician Unavailable KEITH SIMMONS Admitting C linician Unavailable Keith Simmons MDittin g Clinician Payers Payer Name Policy Type Policy Number Effective Date Expirati on Date Source [facility] [id number] Problems Condition Name Condition Details Condition Category Status Onset Date Resolution Date Last Treatment Date Treating Clinician Comments Source Poor short-term memory Poor Short-term Memory Problem Active 2022-06 00:00: 00 [facility] Hyperlipid emia Hyperlipid emia Problem Active 10-20 00:00: 00 [facility] Body mass index 30+ - obesity Body Mass Index 30+ - Obesity Problem Active 10-20 00:00: 00 [facility] Chronic low back pain Chronic Low Back Pain Problem Active 10-20 00:00: 00 [facility] Screening for malignant neoplasm of respirator y tract Screening for Malignant Neoplasm of Respirator y Tract Problem Active 10-20 00:00: 00 [facility] Screening for malignant neoplasm of prostate Screening for Malignant Neoplasm of Prostate Problem Active 10-20 00:00: 00 [facility] Screening for malignant neoplasm of colon Screening for Malignant Neoplasm of Colon Problem Active 10-20 00:00: 00 [facility] Pain of right shoulder joint Pain of Right Shoulder Joint Problem Active 10-20 00:00: 00 [facility] Mixed anxiety and depressive disorder Mixed Anxiety and Depressive Disorder Problem Active 10-14 00:00: 00 [facility] Smokes tobacco daily Smokes Tobacco Daily Problem Active 10-14 00:00: 00 [facility] Essential hypertensi on Essential Hypertensi on Problem Active 10-14 00:00: 00 [facility] Forgetful Forgetful Problem Active 10-14 00:00: 00 [facility] Chest pain Chest pain Disease Active 10-03 00:00: 00 [facility] Allergies, Adverse Reactions, Alerts Allergy Name Allergy Type Status Severity Reaction(s) Onset Date Inactive Date Treating Clinician Comments Source NO KNOWN ALLERGIE S Drug Class Active [facility] Social History Social Habit Start Date Stop Date Quantity Comments Source History of tobacco use Cigarette Smoker [facility] Exposure to SARS-CoV-2 (event) 2022-09-23 00:00:00 2022-10-03 21:12:00 Not sure [facility] Tobacco use and exposure 2022-10-03 00:00:00 2022-10-03 00:00:00 User of smokeless tobacco [facility] Alcohol intake 2022-10-03 00:00:00 2022-10-03 00:00:00 Current drinker of alcohol (finding) [facility] Alcohol Comment 2022-10-03 00:00:00 2022-10-03 00:00:00 minimal, socially [facility] Cigarettes smoked current (pack per day) - Reported 2022-10-03 00:00:00 2022-10-03 00:00:00 [facility] Cigarette pack-years 2022-10-03 00:00:00 2022-10-03 00:00:00 [facility] Sex Assigned At 1960 00:00:00 1960 00:00:00 [facility] Smoking Status Start Date Stop Date Source Heavy Tobacco Smoker Frances awais [facility] Smokes tobacco daily 2022-10-03 00:00:00 [facility] Medications Ordered Medication Name Filled Medication Name Start Date Stop Date Current Medication? Ordering Clinician Indication Dosage Frequency Signature (SIG) Comments Components Source atorvastati n (LIPITOR) tablet 40 mg 10-05 02:00: 00 Yes 40mg 40 mg, Oral, QHS, First dose on Tue10/04/22 at 2100, Until Discontinu ed, Routine [facility] metoprolol tartrate (LOPRESSOR) tablet 12.5 mg 10-05 01:00: 00 Yes 12.5mg 12.5 mg, Oral, BID, First dose on Tue10/04/22 at 2000, Until Discontinu ed, Routine [facility] aspirin 81 mg chewable tablet 10-05 00:00: 00 Yes [id number] 81mg Take 1 tablet by mouth in the morning. [facility] nicotine 7 mg/24 hr patch 10-05 00:00: 00 Yes [id number] 1{patch } Apply 1 Patch to area(s) every 24 (twenty-fo ur) hours. [facility] nicotine (NICODERM) 7 mg/24 hr patch 1 Patch 10-04 20:15: 00 Yes 1{patch } 1 Patch, Topical, Administer over 24 Hours, Q24H, First dose on Tue10/04/22 at 1515, Until Discontinu ed, Routine [facility] aspirin chewable tablet 81 mg 10-04 14:00: 00 Yes 81mg 81 mg, Oral, DAILY, First dose on Tue10/04/22 at 0900, Until Discontinu ed, Routine [facility] lisinopriL (PRINIVIL,Z ESTRIL) tablet 2.5 mg 10-04 14:00: 00 Yes 2.5mg 2.5 mg, Oral, DAILY, First dose on Tue10/04/22 at 0900, Until Discontinu ed, Routine [facility] enoxaparin (LOVENOX) injection 40 mg 10-04 14:00: 00 Yes 40mg 40 mg, Subcutaneo us, DAILY, First dose on Tue10/04/22 at 0900, Until Discontinu ed, Routine [facility] KCL (KLOR-CON M20) tablet 20 mEq 10-04 05:15: 00 10-04 04:31 :00 No 20meq 20 mEq, Oral, ONCE, 1 dose, On Tue10/04/22 at 0015, Routine [facility] magnesium sulfate in water 2 gram/50 mL (4 %) infusion 2 g 10-04 05:00: 00 10-04 05:32 :00 No 2g 2 g, IV Piggyback, Administer over 60 Minutes, ONCE, 1 dose, On Tue10/04/22 at 0000, Routine [facility] acetaminoph en (TYLENOL) tablet 650 mg 10-04 02:47: 25 Yes 650mg 650 mg, Oral, Q6HPRN, Starting on Tue10/03/22 at 2147, Until Discontinu ed, Routine, Pain (scale 1-3) [facility] atorvastati n 40 mg tablet 10-04 00:00: 00 Yes [id number] 40mg Take 1 tablet by mouth at bedtime. [facility] metoprolol tartrate 25 mg tablet 10-04 00:00: 00 Yes [id number] 12.5mg Take 0.5 tablets by mouth in the morning and 0.5 tablets in the evening. [facility] cholecalcif delaney (vitamin D3) 125 mcg (5,000 unit) capsule Take 1 capsule every day by oral route. cholecalcif delaney (vitamin D3) 125 mcg (5,000 unit) capsule Take 1 capsule every day by oral route. No 1capsul e(s) Q1D cholecalci ferol (vitamin D3) 125 mcg (5,000 unit) capsule Take 1 capsule every day by oral route. [facility] lisinopril 10 mg tablet Take 1 tablet every day by oral route. lisinopril 10 mg tablet Take 1 tablet every day by oral route. No 1 Q1D lisinopril 10 mg tablet Take 1 tablet every day by oral route. [facility] sertraline 50 mg tablet TAKE 1 TABLET BY MOUTH ONCE DAILY sertraline 50 mg tablet TAKE 1 TABLET BY MOUTH ONCE DAILY No sertraline 50 mg tablet TAKE 1 TABLET BY MOUTH ONCE DAILY [facility] Vitamin B12 1000 mcg tablet 1 p.o. daily Vitamin B12 1000 mcg tablet 1 p.o. daily No Vitamin B12 1000 mcg tablet 1 p.o. daily [facility] albuterol sulfate HFA 90 mcg/actuati on aerosol inhaler INHALE 1 PUFF BY MOUTH EVERY 4 TO 6 HOURS NEEDED albuterol sulfate HFA 90 mcg/actuati on aerosol inhaler INHALE 1 PUFF BY MOUTH EVERY 4 TO 6 HOURS NEEDED No albuterol sulfate HFA 90 mcg/actuat ion aerosol inhaler INHALE 1 PUFF BY MOUTH EVERY 4 TO 6 HOURS NEEDED [facility] cholecalcif delaney (vitamin D3) 125 mcg (5,000 unit) capsule Take 1 capsule every day by oral route. cholecalcif delaney (vitamin D3) 125 mcg (5,000 unit) capsule Take 1 capsule every day by oral route. No 1capsul e(s) Q1D cholecalci ferol (vitamin D3) 125 mcg (5,000 unit) capsule Take 1 capsule every day by oral route. [facility] lisinopril 10 mg tablet Take 1 tablet every day by oral route. lisinopril 10 mg tablet Take 1 tablet every day by oral route. No 1 Q1D lisinopril 10 mg tablet Take 1 tablet every day by oral route. [facility] sertraline 50 mg tablet TAKE 1 TABLET BY MOUTH ONCE DAILY sertraline 50 mg tablet TAKE 1 TABLET BY MOUTH ONCE DAILY No sertraline 50 mg tablet TAKE 1 TABLET BY MOUTH ONCE DAILY [facility] Vitamin B12 1000 mcg tablet 1 p.o. daily Vitamin B12 1000 mcg tablet 1 p.o. daily No Vitamin B12 1000 mcg tablet 1 p.o. daily [facility] lisinopril 20 mg tablet TAKE 1 TABLET BY MOUTH ONCE DAILY lisinopril 20 mg tablet TAKE 1 TABLET BY MOUTH ONCE DAILY No lisinopril 20 mg tablet TAKE 1 TABLET BY MOUTH ONCE DAILY [facility] sertraline 50 mg tablet TAKE 1 TABLET BY MOUTH ONCE DAILY sertraline 50 mg tablet TAKE 1 TABLET BY MOUTH ONCE DAILY No sertraline 50 mg tablet TAKE 1 TABLET BY MOUTH ONCE DAILY [facility] lisinopril 20 mg tablet TAKE 1 TABLET BY MOUTH ONCE DAILY lisinopril 20 mg tablet TAKE 1 TABLET BY MOUTH ONCE DAILY No lisinopril 20 mg tablet TAKE 1 TABLET BY MOUTH ONCE DAILY [facility] sertraline 50 mg tablet TAKE 1 TABLET BY MOUTH ONCE DAILY sertraline 50 mg tablet TAKE 1 TABLET BY MOUTH ONCE DAILY No sertraline 50 mg tablet TAKE 1 TABLET BY MOUTH ONCE DAILY [facility] Vital Signs Vital Name Observation Time Observation Value Comments S ource BP Systolic 2023-05-11 00:00:00 124 mm[Hg] [facility] BMI (Body Mass Index) 2023-05-11 00:00:00 33.9 kg/m2 [facility] BP Diastolic 2023-05-11 00:00:00 83 mm[Hg] [facility] Height 2023-05-11 00:00:00 64 [in_i] Matelizabeth orda [facility] Body Weight 2023-05-11 00:00:00 3158 [oz_av] Carlos tagorda [facility] BP Diastolic 2022-12-13 00:00:00 68 mm[Hg] [facility] Height 2022-12-13 00:00:00 64 [in_i] [facility] BMI (Body Mass Index) 2022-12-13 00:00:00 34.7 kg/m2 [place] [facility] BP Systolic 2022-12-13 00:00:00 104 mm[Hg] Heller zack [facility] Body Weight 2022-12-13 00:00:00 3238 [oz_av] Carlos tagorda [facility] BP Diastolic 2022-10-20 00:00:00 64 mm[Hg] [facility] Height 2022-10-20 00:00:00 64 [in_i] [facility] BMI (Body Mass Index) 2022-10-20 00:00:00 35.4 kg/m2 [place] [facility] BP Systolic 2022-10-20 00:00:00 99 mm[Hg] Heller zack [facility] Body Weight 2022-10-20 00:00:00 3300 [oz_av] Carlos tagorda [facility] BP Diastolic 2022-10-14 00:00:00 74 mm[Hg] [facility] [facility] Height 2022-10-14 00:00:00 64 [in_i] [facility] BMI (Body Mass Index) 2022-10-14 00:00:00 35.2 kg/m2 [place] [facility] BP Systolic 2022-10-14 00:00:00 111 mm[Hg] Ehller zack [facility] Body Weight 2022-10-14 00:00:00 3282 [oz_av] Carlos tagorda [facility] Systolic blood pressure 2022-10-04 16:03:00 110 mm[Hg] [facility] Diastolic blood pressure 2022-10-04 16:03:00 74 mm[Hg] [facility] Heart rate 2022-10-04 16:03:00 61 /min [facility] Body temperature 2022-10-04 16:03:00 36.44 Tonia [facility] Respiratory rate 2022-10-04 16:03:00 18 /min [facility] Oxygen saturation in Arterial blood by Pulse oximetry 2022-10-04 16:03:00 97 /min [facility] Body weight 2022-10-04 02:20:00 90.629 kg [facility] Procedures Procedure Date / Time Performed Performing Clinician Source CT, head, w/o contrast 2023-05-11 00:00:00 [facility] LDCT, chest, for lung cancer screening 2022-12-13 00:00:00 [facility] LDCT, chest, for lung cancer screening 2022-10-20 00:00:00 [facility] XR, shoulder, 2 or more view 2022-10-14 [facility] XR, lumbosacral spine, 2 or 3 view 2022-10-14 00:00:00 [facility] EXTERNAL PROVIDER RECORDS 2022-10-11 05:01:00 Doctor Unassigned, [place] [facility] TROPONIN I 2022-10-04 09:33:00 Jhonatan Gutiérrez [facility] MAGNESIUM 2022-10-04 03:21:00 Jhonatan Gutiérrez [facility] TROPONIN I 2022-10-04 03:21:00 Jhonatan Gutiérrez [facility] THYROID STIMULATING HORMONE 2022-10-04 03:21:00 Jhonatan Gutiérrez [facility] HEPATIC FUNCTION PANEL (61039) (ALB,T.PRO,BILI T,BU/BC,ALT,AST,ALK PHOS) 2022-10-04 03:21:00 Jhonatan Gutiérrez [facility] BASIC METABOLIC PANEL (NA, K, CL, CO2, GLUCOSE, BUN, CREATININE, CA) 2022-10-04 03:21:00 Jhonatan Gutiérrez [facility] LIPID PANEL (79282)(TOTAL CHOLESTEROL, TRIGLYCERIDES, HDL) 2022-10-04 03:21:00 Jhonatan Gutiérrez [facility] CBC WITH DIFF 2022-10-04 03:21:00 Jhonatan Gutiérrez [facility] GLYCOSYLATED HEMOGLOBIN (A1C) 2022-10-04 03:21:00 Jhonatan Gutiérrez [facility] PROTHROMBIN TIME / INR 2022-10-04 03:21:00 Gerald Gutiérrez [facility] Plan of Care Planned Activity Planned Date Details Comments Source Diagnostic Test Pending 2023-05-11 00:00:00 CMP, serum or plasma [code = CMP, serum or plasma] [facility] Diagnostic Test Pending 2023-05-11 00:00:00 CBC w/ auto diff [code = CBC w/ auto diff] [facility] Diagnostic Test Pending 2023-05-11 00:00:00 microalbumin/creatin ine, mass ratio, urine [code = microalbumin/creatin ine, mass ratio, urine] [facility] Diagnostic Test Pending 2023-05-11 00:00:00 HbA1c (hemoglobin A1c), blood [code = HbA1c (hemoglobin A1c), blood] [facility] Diagnostic Test Pending 2023-05-11 00:00:00 lipid panel, serum [code = lipid panel, serum] [facility] Diagnostic Test Pending 2023-05-11 00:00:00 HIV 1 + 2, meaningful use set [code = HIV 1 + 2, meaningful use set] [facility] Diagnostic Test Pending 2023-05-11 00:00:00 vitamin B12 + folate, serum or blood [code = vitamin B12 + folate, serum or blood] [facility] Diagnostic Test Pending 2023-05-11 00:00:00 vitamin D, 25-hydroxy, total, serum [code = vitamin D, 25-hydroxy, total, serum] [place] [facility] Encounters Start Date/Time End Date/Time Encounter Type Admission Type Attending [facility] Care Department Encounter ID Source 2023-05-30 00:00:00 2023-05-30 00:00:00 Outpatient AYO HOLM [facility] [id number] [facility] 2023-05-11 00:00:00 2023-05-11 00:00:00 Zuri Brown, GEOSPATIAL IMAGERY INTELLIGENCE ANALYST: [address] [place] [address] , Ph. [facility] 3 [id number] [facility] 2023-05-04 00:00:00 2023-05-04 00:00:00 Outpatient SHIMEK_ZURI HOLM [facility] [id number] [facility] 2023-05-04 00:00:00 2023-05-04 00:00:00 Outpatient SHIMEK_ZURI HOLM [facility] [id number] [facility] 2022-12-13 00:00:00 2022-12-13 00:00:00 Outpatient SHIMEK_ZURI HOLM [facility] [id number] [facility] 2022-12-13 00:00:00 2022-12-13 00:00:00 Outpatient SHIMEK_ZURI HOLM [facility] [id number] [facility] 2022-12-13 00:00:00 2022-12-13 00:00:00 Outpatient SHIMEK_ZURI HOLM [facility] [id number] [facility] 2022-12-13 00:00:00 2022-12-13 00:00:00 Outpatient SHIMEK_ZURI HOLM [facility] [id number] [facility] 2022-12-13 00:00:00 2022-12-13 00:00:00 Zuri Erwin Kevin, GEOSPATIAL IMAGERY INTELLIGENCE ANALYST: [address] [place] [address] , Ph. [place] [address] [id number] [facility] 2022-12-07 00:00:00 2022-12-07 00:00:00 Outpatient KEVIN_ZURI HOLM [facility] [id number] [facility] 2022-12-06 00:00:00 2022-12-06 00:00:00 Outpatient Sboia_Jerome [facility] [id number] [facility] 2022-10-20 00:00:00 2022-10-20 00:00:00 Jerome Ramsay: [place] [address] , Ph. [facility] [id number] [facility] 2022-10-15 00:00:00 2022-10-15 00:00:00 Outpatient Sobia_Jerome [facility] [id number] [facility] 2022-10-14 00:00:00 2022-10-14 00:00:00 Outpatient Sobia_Amishnatasha [facility] [id number] [facility] 2022-10-14 00:00:00 2022-10-14 00:00:00 Outpatient Saha_Jerome [facility] [id number] [facility] 2022-10-14 00:00:00 2022-10-14 00:00:00 Jerome Ramsay: [address] [place] [address] , Ph. [facility] [id number] [facility] 2022-10-13 00:00:00 2022-10-13 00:00:00 Outpatient Saha_Andrea [facility] [id number] [facility] 2022-10-11 00:00:00 2022-10-11 00:00:00 Orders Only Doctor Unassigned, [place] [facility] [id number] [facility] 2022-10-06 00:00:00 2022-10-06 00:00:00 Outpatient Saha_Andrea MEH[facility] [id number] [facility] 2022-10-06 00:00:00 2022-10-06 00:00:00 Outpatient Saha_Andrea [facility] [id number] [facility] 2022-10-06 00:00:00 2022-10-06 00:00:00 Outpatient Saha_Andrea NJHOP [facility] [id number] [facility] 2022-10-03 20:46:00 2022-10-04 17:19:00 Outpatient U IRISMOSTSASHANatasha [facility] [id number] [facility] 2022-10-03 20:46:00 2022-10-04 17:19:00 Hospital Encounter Keith Simmons [facility] [id number] [facility] Results Test Description Test Time Test Comments Results Result Co mments Source [facility] Differential panel - Blood 2022-10-16 00:00:00* Test Item Value Reference Range Interpretation Comme nts Leukocytes [#/volume] in Blo od by Automated count (test code = 6690-2) 6.1 x10e3/uL 3.4-10.8 Erythrocytes [#/volume] in Blood by Automated count (test code = 789-8) 5.24 x10e6/uL 4.14-5.80 Hemoglobin [Mass/volume] in Blood (test code = 718-7) 16.6 g/dL 13.0-17.7 Hematocrit [Volume Fraction] of Blood by Automated count (test code = 4544-3) 46.7 % 37.5-51.0 Erythrocyte mean corpuscular volume [Entitic volume] by Automated count (test code = 787-2) 89 fL 79-97 Erythrocyte mean corpuscular hemoglobin [Entitic mass] by Automated count (test code = 785-6) 31.7 pg 26.6-33.0 Erythrocyte mean corpuscular hemoglobin concentration [Mass/volume] by Automated count (test code = 786-4) 35.5 g/dL 31.5-35.7 Erythrocyte distribution wid th [Ratio] by Automated count (test code = 788-0) 13.0 % 11.6-15.4 Platelets [#/volume] in Bloo d by Automated count (test code = 777-3) 209 x10e3/uL 150-450 Neutrophils/100 leukocytes i n Blood by Automated count (test code = 770-8) 68 % not estab. Lymphocytes/100 leukocytes i n Blood by Automated count (test code = 736-9) 22 % not estab. Monocytes/100 leukocytes in Blood by Automated count (test code = 5905-5) 7 % not estab. Eosinophils/100 leukocytes i n Blood by Automated count (test code = 713-8) 2 % not estab. Basophils/100 leukocytes in Blood by Automated count (test code = 706-2) 1 % not estab. 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 [facility] 2000 panel - Serum or [id number] 00:00:00* Test Item Value Reference Range Interpretation Comme nts Glucose [Mass/volume] in Ser um or Plasma (test code = 2345-7) 100 mg/dL 70-99 H Urea nitrogen [Mass/volume] in Serum or Plasma (test code = 3094-0) 10 mg/dL 8-27 Creatinine [Mass/volume] in Serum or Plasma (test code = 2160-0) 0.97 mg/dL 0.76-1.27 Glomerular filtration rate/1.73 sq M.predicted [Volume Rate/Area] in Serum, Plasma or Blood by Creatinine-based formula (CKD-EPI 2020) (test code = 52237-2) 88 mL/min/1.73 >59 Urea nitrogen/Creatinine [Ma ss Ratio] in Serum or Plasma (test code = 3097-3) 10 10-24 Sodium [Moles/volume] in Ser um or Plasma (test code = 2951-2) 138 mmol/L 134-144 Potassium [Moles/volume] in Serum or Plasma (test code = 2823-3) 4.4 mmol/L 3.5-5.2 Chloride [Moles/volume] in Serum or Plasma (test code = 2075-0) 100 mmol/L 96-106 Carbon dioxide, total [Moles/volume] in Serum or Plasma (test code = 2027-9) 25 mmol/L 20-29 Calcium [Mass/volume] in Ser um or Plasma (test code = 71861-9) 9.2 mg/dL 8.6-10.2 Protein [Mass/volume] in Ser um or Plasma (test code = 2885-2) 7.0 g/dL 6.0-8.5 Albumin [Mass/volume] in Ser um or Plasma (test code = 1751-7) 4.5 g/dL 3.8-4.8 Globulin [Mass/volume] in Serum by calculation (test code = 50754-2) 2.5 g/dL 1.5-4.5 Albumin/Globulin [Mass Ratio ] in Serum or Plasma (test code = 1759-0) 1.8 1.2-2.2 Bilirubin.total [Mass/volume ] in Serum or Plasma (test code = 1974-) 0.7 mg/dL 0.0-1.2 Alkaline phosphatase [Enzymatic activity/volume] in Serum or Plasma (test code = 6768-6) 72 IU/L 44-121 Aspartate aminotransferase [Enzymatic activity/volume] in Serum or Plasma (test code = 1920-8) 11 IU/L 0-40 Alanine aminotransferase [Enzymatic activity/volume] in Serum or Plasma (test code = 1742-6) 11 IU/L 0-44 [facility] ProgramLipid 1996 panel - Serum or Plasma 2022-10-16 00:00:00* Test Item Value Reference Range Interpretation Comme nts Cholesterol [Mass/volume] in Serum or Plasma (test code = 2093-3) 159 mg/dL 100-199 Triglyceride [Mass/volume] i n Serum or Plasma (test code = 2571-8) 91 mg/dL 0-149 Cholesterol in HDL [Mass/vol ume] in Serum or Plasma (test code = 2085-9) 39 mg/dL >39 L Cholesterol in VLDL [Mass/vo lume] in Serum or Plasma by calculation (test code = 72189-0) 17 mg/dL 5-40 Cholesterol in LDL [Mass/vol ume] in Serum or Plasma by calculation (test code = 08073-0) 103 mg/dL 0-99 H Laboratory comment [Text] in Report Narrative (test code = 76263-4) 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 [facility] ProgramFolate+Cyanocobalamin [Interpretation] in Serum or [id number] 00:00:00* Test Item Value Reference Range Interpretation Comme nts Cobalamin (Vitamin B12) [Mass/volume] in Serum or Plasma (test code = 2132-9) 350 pg/mL 232-1245 Folate [Mass/volume] in Seru m or Plasma (test code = 2284-8) 3.8 NG/mL >3.0 [facility], serum or [id number] 00:00:00* Test Item Value Reference Range Interpretation Comme nts Prostate specific Ag [Mass/v olume] in Serum or Plasma (test code = 2857-1) 0.3 NG/mL 0.0-4.0 reflex criteria (test code = reflex criteria) comment [facility] A1c/Hemoglobin.total in [id number] 00:00:00* Test Item Value Reference Range Interpretation Comme nts Hemoglobin A1c/Hemoglobin.to constance in Blood (test code = 4548-4) 5.1 % 4.8-5.6 [facility]-Hydroxyvitamin D3+25- Hydroxyvitamin D2 [Mass/volume] in Serum or [id number] 00:00:00* Test Item Value Reference Range Interpretation Comme nts 25-Hydroxyvitamin D3+25-Hydroxyvitamin D2 [Mass/volume] in Serum or Plasma (test code = 97663-5) 25.3 NG/mL 30.0-100.0 L [facility]inteNatriuretic peptide B [Mass/volume] in Serum or [id number] 00:00:00* Test Item Value Reference Range Interpretation Comme nts Natriuretic peptide B [Mass/volume] in Serum or Plasma (test code = 24585-3) 12.2 pg/mL 0.0-100.0 [facility] ProgramUrate [Mass/volume] in Serum or [id number] 00:00:00* Test Item Value Reference Range Interpretation Comme nts Urate [Mass/volume] in Serum or Plasma (test code = 3084-1) 5.8 mg/dL 3.8-8.4 [facility] panel, [id number] 00:00:00* Test Item Value Reference Range Interpretation Comme nts Interpretation and review of laboratory results (test code = 21765-2) note Report (test code = 19893-6) . [facility] [id number] 10:09:21* Test Item Value Reference Range Interpretation Comme nts TROPONIN I (test code = 4478675639) 0.003 ng/mL <=0.034 TERESA (test code = TERESA) Reference (Normal) [...] to patient's use of biotin. Lab Interpretation (test code = 92221-6) Normal [facility]
--- NOTE | 2024-06-09 11:08 | ER ---
Nurse's Notes [facility] Name: Raghu Garcia Age: 63 yrs Sex: Male : 1960 Arrival Date: 06/09/2024 Time: 10:27 Bed DX3 Private MD: Diagnosis: Hordeolum externum left upper eyelid;Cellulitis of left orbit;Tobacco abuse counseling;Tobacco use Presentation: 06/09 10:45 Chief complaint: Patient states: Woke up this morning with bumps to L eyelid and L eye ss matted closed. Coronavirus screen: Client denies travel out of the [place] in the last 14 days. Ebola Screen: Patient denies exposure to infectious person. Patient denies travel to an Ebola-affected area in the 21 days before illness onset. Initial Sepsis Screen: Does the patient meet any 2 criteria? No. Patient's initial sepsis screen is negative. Does the patient have a suspected source of infection? No. Patient's initial sepsis screen is negative. Risk Assessment: Do you want to hurt yourself or someone else? Patient reports no desire to harm self or others. Onset of symptoms was June 09, 2024. 10:45 Method Of Arrival: Ambulatory ss 10:45 Acuity: GIDEON 3 ss Historical: - Allergies: 10:46 No Known Allergies; ss - PMHx: 10:46 Hypertensive disorder; ss - Immunization history:: Client reports having NOT received the Covid vaccine. - Infectious Disease History:: Denies. - Social history:: Smoking status: Patient reports the use of cigarette tobacco products, smokes one-half pack cigarettes per day. - Family history:: not pertinent. Screenin:45 Abuse screen: Denies threats or abuse. Denies injuries from another. Nutritional ss screening: No deficits noted. Tuberculosis screening: Never had TB. Assessment: 10:45 General: Appears in no apparent distress. comfortable, Behavior is calm, cooperative. ss Neuro: Level of Consciousness is awake, alert, obeys commands, Oriented to person, place, time, situation. Respiratory: Airway is patent Respiratory effort is even, unlabored, Respiratory pattern is regular, symmetrical. EENT: redness noted to L eye with two pustules noted to upper eyelid. Pt reports that the irritation began this morning.. Derm: Skin is pink, warm \T\ dry. normal. Vital Signs: 10:45 BP 117 / 75; Pulse 82; Resp 16; Temp 98.2(O); Pulse Ox 100% on R/A; Pain 0/10; ss 10:45 Pain Scale: Adult ss ED Course: 10:30 Patient arrived in ED. [facility] 10:30 Jone Whatley MD is Attending Physician. [facility] 10:45 Arm band placed on left wrist. ss 10:45 Patient has correct armband on for positive identification. Bed in low position. Call light in reach. 10:46 Triage completed. ss 11:06 Brando Valdez MD is Referral Physician. [facility] 11:13 Kinjal Isaacs, RN is Primary Nurse. 11:29 No provider procedures requiring assistance completed. Patient did not have IV access ss during this emergency room visit. Administered Medications: 11:28 Drug: Trimethoprim-Sulfamethoxazole PO (160 mg-800 mg (DS) 1 tablet PO once Route: PO; 11:29 Follow up: Response: Medication Administered at Departure 11:28 Drug: Doxycycline PO 200 mg PO once Route: PO; 11:29 Follow up: Response: Medication Administered at Departure 11:29 Not Given (unavailable in pyxis. Pt will fill RX. Dr. whatley notified and states ok): erythromycinointment 1 application Ophthalmic once Outcome: 11:07 Discharge ordered by . [facility] 11:29 Discharged to home ambulatory, 11:29 Condition: good 11:29 Discharge instructions given to patient, Instructed on discharge instructions, follow up and referral plans. medication usage, Demonstrated understanding of instructions, follow-up care, medications, Prescriptions given X 3, 11:29 Patient left the ED. ss Signatures: Jone Whatley MD MD cha Blanchard, Shelby, RN RN
--- NOTE | 2024-06-09 11:08 | EDPHYS ---
Physician Documentation [facility] Name: Raghu Garcia Age: 63 yrs Sex: Male : 1960 Arrival Date: 06/09/2024 Time: 10:27 Bed DX3 Private MD: ED Physician Jone Sky HPI: 06/09 10:58 This 63 yrs old Male presents to ER via Ambulatory with complaints of mell Drainage From Eye. 10:58 The patient is experiencing pain, redness, The patient sustained None. Onset: The mell symptoms/episode began/occurred 5 day(s) ago. Duration: the symptoms are continuous. Aggravated by blinking, pressure, rubbing, Alleviated by nothing. Associated signs and symptoms: Pertinent positives: None. Pertinent negatives: None. Patient wears glasses. Severity of symptoms: At their worst the symptoms were mild in the emergency department the symptoms are unchanged. The patient has not experienced similar symptoms in the past. Historical: - Allergies: 10:46 No Known Allergies; ss - PMHx: 10:46 Hypertensive disorder; ss - Immunization history:: Client reports having NOT received the Covid vaccine. - Infectious Disease History:: Denies. - Social history:: Smoking status: Patient reports the use of cigarette tobacco products, smokes one-half pack cigarettes per day. - Family history:: not pertinent. ROS: 10:58 Constitutional: Negative for fever, chills, and weight loss, ENT: Negative for injury, mell pain, and discharge, Neck: Negative for injury, pain, and swelling, Cardiovascular: Negative for chest pain, palpitations, and edema, Respiratory: Negative for shortness of breath, cough, wheezing, and pleuritic chest pain, Abdomen/GI: Negative for abdominal pain, nausea, vomiting, diarrhea, and constipation, Back: Negative for injury and pain, : Negative for injury, bleeding, discharge, and swelling, MS/Extremity: Negative for injury and deformity, Skin: Negative for injury, rash, and discoloration, Neuro: Negative for headache, weakness, numbness, tingling, and seizure, Psych: Negative for depression, anxiety, suicide ideation, homicidal ideation, and hallucinations, Allergy/Immunology: Negative for hives, rash, and allergies, Endocrine: Negative for neck swelling, polydipsia, polyuria, polyphagia, and marked weight changes, Hematologic/Lymphatic: Negative for swollen nodes, abnormal bleeding, and unusual bruising, 10:58 Eyes: Positive for pain, swelling, of the left upper eyelid and left lower eyelid, Exam: 10:58 Constitutional: This is a well developed, well nourished patient who is awake, alert, mell and in no acute distress. Head/Face: Normocephalic, atraumatic. ENT: Nares patent. No nasal discharge, no septal abnormalities noted. Tympanic membranes are normal and external auditory canals are clear. Oropharynx with no redness, swelling, or masses, exudates, or evidence of obstruction, uvula midline. Mucous membranes moist. Neck: Trachea midline, no thyromegaly or masses palpated, and no cervical lymphadenopathy. Supple, full range of motion without nuchal rigidity, or vertebral point tenderness. No Meningismus. Chest/axilla: Normal chest wall appearance and motion. Nontender with no deformity. No lesions are appreciated. Cardiovascular: Regular rate and rhythm with a normal S1 and S2. No gallops, murmurs, or rubs. Normal PMI, no JVD. No pulse deficits. Respiratory: Lungs have equal breath sounds bilaterally, clear to auscultation and percussion. No rales, rhonchi or wheezes noted. No increased work of breathing, no retractions or nasal flaring. Abdomen/GI: Soft, non-tender, with normal bowel sounds. No distension or tympany. No guarding or rebound. No evidence of tenderness throughout. Back: No spinal tenderness. No costovertebral tenderness. Full range of motion. Skin: Warm, dry with normal turgor. Normal color with no rashes, no lesions, and no evidence of cellulitis. MS/ Extremity: Pulses equal, no cyanosis. Neurovascular intact. Full, normal range of motion., bilateral aka Neuro: Awake and alert, GCS 15, oriented to person, place, time, and situation. Cranial nerves II-XII grossly intact. Motor strength 5/5 in all extremities. Sensory grossly intact. Cerebellar exam normal. Normal gait. Psych: Awake, alert, with orientation to person, place and time. Behavior, mood, and affect are within normal limits. 10:58 Eyes: Periorbital structures: cellulitis, that is mild, on the left upper eyelid and left lower eyelid, erythema, that is mild, swelling, that is mild, upper lid styes, Vital Signs: 10:45 BP 117 / 75; Pulse 82; Resp 16; Temp 98.2(O); Pulse Ox 100% on R/A; Pain 0/10; ss 10:45 Pain Scale: Adult ss MDM: 10:30 Medical Screening Exam initiated [facility] 10:30 Medical Screening Exam initiated [facility] 11:05 Differential diagnosis: Foreign body in left eye. Data reviewed: vital signs, nurses mell notes. Consideration of Admission/Observation Escalation of care including admission/observation considered. I considered the following discharge prescriptions or medication management in the emergency department Medications were administered in the Emergency Department. See MAR. Test considered but Not performed: Labs: no labs. Care significantly affected by the following chronic conditions: Hypertension, Obesity, tobacco. Administered Medications: 11:28 Drug: Trimethoprim-Sulfamethoxazole PO (160 mg-800 mg (DS) 1 tablet PO once Route: PO; ss 11:29 Follow up: Response: Medication Administered at Departure 11:28 Drug: Doxycycline PO 200 mg PO once Route: PO; ss 11:29 Follow up: Response: Medication Administered at Departure 11:29 Not Given (unavailable in pyxis. Pt will fill RX. Dr. sky notified and states ok): ss erythromycinointment 1 application Ophthalmic once Disposition Summary: 06/09/24 11:07 Discharge Ordered Notes: Location: Home [facility] Problem: new mell Symptoms: have improved mell Condition: Stable mell Diagnosis - Hordeolum externum left upper eyelid mell - Cellulitis of left orbit mell - Tobacco abuse counseling mell - Tobacco use mell Followup: mell - With: Private Physician - When: 2 - 3 days - Reason: Recheck today's complaints, Continuance of care, Re-evaluation by your physician Followup: mell - With: Brando Valdez MD - When: 2 - 3 days - Reason: Recheck today's complaints, Re-evaluation by your physician Discharge Instructions: - Discharge Summary Sheet mell - Cellulitis, Adult mell - Steps to Quit Smoking mell - Health Risks of Smoking mell - Stye mell - Cellulitis, Adult, [id number] mell - Steps to Quit Smoking, [id number] [facility] Forms: - Medication Reconciliation Form mell - Antibiotic Education mell - Prescription Opioid Use mell - Patient Portal Instructions [facility] - Leadership Thank You Letter [facility] Prescriptions: - Doxycycline Hyclate 100 mg Oral Tablet - take 1 tablet ORAL route every 12 hours; 20 tablet; Refills: 0, Product [facility] Selection Permitted - Bactrim DS 800-160 mg Oral Tablet - take 1 tablet ORAL route every 12 hours for 10 days; 20 tablet; Refills: 0, [facility] Product Selection Permitted - Erythromycin 5 mg/gram (0.5 %) Ophthalmic ointment - apply 1 ribbon OPHTHALMIC route every 8 hours; 3.5 gram; Refills: 0, Product [facility] Selection Permitted Signatures: Jone Sky MD MD cha Blanchard, Shelby, BRANDIE RN ss
[2024-06-09] MEDS ORDERED: DOXYCYCLINE 100 MG CAP PO ONE (11:20)
[2024-06-09] MEDS ORDERED: SMZ./TMP. 800/160 MG TABLET ONE (11:20)
[2024-06-09 11:38] VITALS: BP 117/75; TEMP 98.2; O2SAT 100
== END 2024-06-09 11:29 | disposition home or self-care (01) ==
LOC: ER 10:27
DX: H00.014 Hordeolum externum left upper eyelid (principal); H05.012 Cellulitis of left orbit; Z71.6 Tobacco abuse counseling; Z72.0 Tobacco use
CPT/HCPCS: 99283

== ENCOUNTER 2024-08-19 11:09 | Emergency (ER) | payer OTHER ==
--- OUTSIDE RECORDS SUMMARY | 2024-08-19 11:13 | XMS REPORT | Continuity of Care Document ---
Author Name Unknown Address [address] [facility] [place] [address] Organization [facility] Address [address] [facility] [address] [place] [address] Care Team Providers Care Card Writer Hand Name Role Phone Pcp, Patient Does Not Have A Primary Care Physic bladimir KAUR Attending Clinician Unavailable Omaira Attending Clinician Unavailable Doctor Unassigned, [place] Attending Clinician U KEITH Zaragoza Attending C linician Unavailable Valentin JONES, Keith Shearer Attendin g Clinician KAUR Admitting Clinician Unavailable Omaira Admitting Clinician Unavailable KEITH SIMMONS Admitting C linician Unavailable Keith Simmons MD Admittin g Clinician Payers Payer Name Policy Type Policy Number Effective Date Expirati on Date Source [facility] [id number] Problems Condition Name Condition Details Condition Category [...] Obesity Problem Active 10-20 00:00: 00 [facility] Chronic low back pain Chronic Low Back Pain Problem Active 10-20 00:00: 00 [facility] [facility] Screening for malignant neoplasm of respirator y tract Screening for Malignant Neoplasm of Respirator y Tract Problem Active 10-20 00:00: 00 [facility] Screening for malignant neoplasm of prostate Screening for Malignant Neoplasm of Prostate Problem Active 10-20 00:00: 00 [place] [facility] Screening for malignant neoplasm of colon Screening for Malignant Neoplasm of Colon Problem Active 10-20 00:00: 00 [place] [facility] Pain of right shoulder joint Pain of Right Shoulder Joint Problem Active 10-20 00:00: 00 [place] [facility] Mixed anxiety and depressive disorder Mixed Anxiety and Depressive Disorder Problem Active 10-14 00:00: 00 [facility] Smokes tobacco daily Smokes Tobacco Daily Problem Active 10-14 00:00: 00 [place] [facility] Essential hypertensi on Essential Hypertensi on Problem Active 10-14 00:00: 00 [place] [facility] Forgetful Forgetful Problem Active 10-14 00:00: 00 [place] [facility] Chest pain Chest pain Disease Active 10-03 00:00: 00 [facility] Allergies, Adverse Reactions, Alerts Allergy Name Allergy Type Status Severity Reaction(s) Onset Date Inactive Date Treating Clinician Comments Source NO KNOWN ALLERGIE S Drug Class Active [facility] Social History Social Habit Start Date Stop Date Quantity Comments Source History of tobacco use Cigarette Smoker [facility] Exposure to SARS-CoV-2 (event) 2022-09-23 00:00:00 2022-10-03 21:12:00 Not sure [facility] Tobacco use and exposure 2022-10-03 00:00:00 2022-10-03 00:00:00 User of smokeless tobacco [facility] Alcohol intake 2022-10-03 00:00:00 2022-10-03 00:00:00 Current drinker of alcohol (finding) [facility] Alcohol Comment 2022-10-03 00:00:00 2022-10-03 00:00:00 minimal, socially [facility] Cigarettes smoked current (pack per day) - Reported 2022-10-03 00:00:00 2022-10-03 00:00:00 [facility] Cigarette pack-years 2022-10-03 00:00:00 2022-10-03 00:00:00 [facility] Sex Assigned At 1960 00:00:00 1960 00:00:00 [facility] Smoking Status Start Date Stop Date Source Heavy Tobacco Smoker [facility] Smokes tobacco daily 2022-10-03 00:00:00 [facility] Medications Ordered Medication Name Filled Medication Name Start Date Stop Date Current Medication? Ordering Clinician Indication Dosage Frequency Signature (SIG) Comments Components Source atorvastati n (LIPITOR) tablet 40 mg 10-05 02:00: 00 Yes 40mg 40 mg, Oral, QHS, First dose on Tue10/04/22 at 2100, Until Discontinu ed, Routine [facility] metoprolol tartrate (LOPRESSOR) tablet 12.5 mg 10-05 01:00: 00 Yes 12.5mg 12.5 mg, Oral, BID, First dose on Tue10/04/22 at 2000, Until Discontinu ed, Routine [facility] aspirin 81 mg chewable tablet 10-05 00:00: 00 Yes [id number] 81mg Take 1 tablet by mouth in the morning. [facility] nicotine 7 mg/24 hr patch 10-05 00:00: 00 Yes [id number] 1{patch } Apply 1 Patch to area(s) every 24 (twenty-fo ur) hours. [facility] nicotine (NICODERM) 7 mg/24 hr patch 1 Patch 10-04 20:15: 00 Yes 1{patch } 1 Patch, Topical, Administer over 24 Hours, Q24H, First dose on Tue10/04/22 at 1515, Until Discontinu ed, Routine [facility] aspirin chewable tablet 81 mg 10-04 14:00: 00 Yes 81mg 81 mg, Oral, DAILY, First dose on Tue10/04/22 at 0900, Until Discontinu ed, Routine [facility] lisinopriL (PRINIVIL,Z ESTRIL) tablet 2.5 mg 10-04 14:00: 00 Yes 2.5mg 2.5 mg, Oral, DAILY, First dose on Tue10/04/22 at 0900, Until Discontinu ed, Routine [facility] enoxaparin (LOVENOX) injection 40 mg 10-04 14:00: 00 Yes 40mg 40 mg, Subcutaneo us, DAILY, First dose on Tue10/04/22 at 0900, Until Discontinu ed, Routine [facility] KCL (KLOR-CON M20) tablet 20 mEq 10-04 05:15: 00 10-04 04:31 :00 No 20meq 20 mEq, Oral, ONCE, 1 dose, On Tue10/04/22 at 0015, Routine [facility] magnesium sulfate in water 2 gram/50 mL (4 %) infusion 2 g 10-04 05:00: 00 10-04 05:32 :00 No 2g 2 g, IV Piggyback, Administer over 60 Minutes, ONCE, 1 dose, On Tue10/04/22 at 0000, Routine [facility] acetaminoph en (TYLENOL) tablet 650 mg 10-04 02:47: 25 Yes 650mg 650 mg, Oral, Q6HPRN, Starting on Tue10/03/22 at 2147, Until Discontinu ed, Routine, Pain (scale 1-3) [facility] atorvastati n 40 mg tablet 10-04 00:00: 00 Yes [id number] 40mg Take 1 tablet by mouth at bedtime. [facility] metoprolol tartrate 25 mg tablet -24 00:00: 00 Yes [id number] 12.5mg Take 0.5 tablets by mouth in the morning and 0.5 tablets in the evening. [facility] cholecalcif delaney (vitamin D3) 125 mcg (5,000 unit) capsule Take 1 capsule every day by oral route. cholecalcif delaney (vitamin D3) 125 mcg (5,000 unit) capsule Take 1 capsule every day by oral route. No 1capsul e(s) Q1D cholecalci ferol (vitamin D3) 125 mcg (5,000 unit) capsule Take 1 capsule every day by oral route. [facility] lisinopril 10 mg tablet Take 1 tablet every day by oral route. lisinopril 10 mg tablet Take 1 tablet every day by oral route. No 1 Q1D lisinopril 10 mg tablet Take 1 tablet every day by oral route. [facility] sertraline 50 mg tablet TAKE 1 TABLET BY MOUTH ONCE DAILY sertraline 50 mg tablet TAKE 1 TABLET BY MOUTH ONCE DAILY No sertraline 50 mg tablet TAKE 1 TABLET BY MOUTH ONCE DAILY [facility] Vitamin B12 1000 mcg tablet 1 p.o. daily Vitamin B12 1000 mcg tablet 1 p.o. daily No Vitamin B12 1000 mcg tablet 1 p.o. daily [facility] albuterol sulfate HFA 90 mcg/actuati on aerosol inhaler INHALE 1 PUFF BY MOUTH EVERY 4 TO 6 HOURS NEEDED albuterol sulfate HFA 90 mcg/actuati on aerosol inhaler INHALE 1 PUFF BY MOUTH EVERY 4 TO 6 HOURS NEEDED No albuterol sulfate HFA 90 mcg/actuat ion aerosol inhaler INHALE 1 PUFF BY MOUTH EVERY 4 TO 6 HOURS NEEDED [facility] cholecalcif delaney (vitamin D3) 125 mcg (5,000 unit) capsule Take 1 capsule every day by oral route. cholecalcif delaney (vitamin D3) 125 mcg (5,000 unit) capsule Take 1 capsule every day by oral route. No 1capsul e(s) Q1D cholecalci ferol (vitamin D3) 125 mcg (5,000 unit) capsule Take 1 capsule every day by oral route. [facility] lisinopril 10 mg tablet Take 1 tablet every day by oral route. lisinopril 10 mg tablet Take 1 tablet every day by oral route. No 1 Q1D lisinopril 10 mg tablet Take 1 tablet every day by oral route. [facility] sertraline 50 mg tablet TAKE 1 TABLET BY MOUTH ONCE DAILY sertraline 50 mg tablet TAKE 1 TABLET BY MOUTH ONCE DAILY No sertraline 50 mg tablet TAKE 1 TABLET BY MOUTH ONCE DAILY [facility] Vitamin B12 1000 mcg tablet 1 p.o. daily Vitamin B12 1000 mcg tablet 1 p.o. daily No Vitamin B12 1000 mcg tablet 1 p.o. [facility] lisinopril 20 mg tablet TAKE 1 TABLET BY MOUTH ONCE DAILY lisinopril 20 mg tablet TAKE 1 TABLET BY MOUTH ONCE DAILY No lisinopril 20 mg tablet TAKE 1 TABLET BY MOUTH ONCE DAILY [facility] sertraline 50 mg tablet TAKE 1 TABLET BY MOUTH ONCE DAILY sertraline 50 mg tablet TAKE 1 TABLET BY MOUTH ONCE DAILY No sertraline 50 mg tablet TAKE 1 TABLET BY MOUTH ONCE DAILY [facility] lisinopril 20 mg tablet TAKE 1 TABLET BY MOUTH ONCE DAILY lisinopril 20 mg tablet TAKE 1 TABLET BY MOUTH ONCE DAILY No lisinopril 20 mg tablet TAKE 1 TABLET BY MOUTH ONCE DAILY [facility] sertraline 50 mg tablet TAKE 1 TABLET BY MOUTH ONCE DAILY sertraline 50 mg tablet TAKE 1 TABLET BY MOUTH ONCE DAILY No sertraline 50 mg tablet TAKE 1 TABLET BY MOUTH ONCE DAILY [facility] Vital Signs Vital Name Observation Time Observation Value Comments S ourzhao BP Systolic 2023-05-11 00:00:00 124 mm[Hg] [facility] BMI (Body Mass Index) 2023-05-11 00:00:00 33.9 kg/m2 [facility] BP Diastolic 2023-05-11 00:00:00 83 mm[Hg] [facility] Height 2023-05-11 00:00:00 64 [in_i] [facility] Body Weight 2023-05-11 00:00:00 3158 [oz_av] Carlos tagorda [facility] BP Diastolic 2022-12-13 00:00:00 68 mm[Hg] [facility] Height 2022-12-13 00:00:00 64 [in_i] [facility] or[facility] BMI (Body Mass Index) 2022-12-13 00:00:00 34.7 kg/m2 [facility] BP Systolic 2022-12-13 00:00:00 104 mm[Hg] Heller zack [facility] Body Weight 2022-12-13 00:00:00 3238 [oz_av] Carlos coppolaorda [facility] BP Diastolic 2022-10-20 00:00:00 64 mm[Hg] [facility] Height 2022-10-20 00:00:00 64 [in_i] [facility] BMI (Body Mass Index) 2022-10-20 00:00:00 35.4 kg/m2 [facility] BP Systolic 2022-10-20 00:00:00 99 mm[Hg] Heller zack [facility] Body Weight 2022-10-20 00:00:00 3300 [oz_av] Carlos tagorda [facility] BP Diastolic 2022-10-14 00:00:00 74 mm[Hg] [place] [facility] Height 2022-10-14 00:00:00 64 [in_i] [facility] BMI (Body Mass Index) 2022-10-14 00:00:00 35.2 kg/m2 [facility] BP Systolic 2022-10-14 00:00:00 111 mm[Hg] Heller zack [facility] Body Weight 2022-10-14 00:00:00 3282 [oz_av] Carlos tagorda [facility] Systolic blood pressure 2022-10-04 16:03:00 110 mm[Hg] [facility] Diastolic blood pressure 2022-10-04 16:03:00 74 mm[Hg] [facility] Heart rate 2022-10-04 16:03:00 61 /min [facility] Body temperature 2022-10-04 16:03:00 36.44 Tonia [facility] Respiratory rate 2022-10-04 16:03:00 18 /min [facility] Oxygen saturation in Arterial blood by Pulse oximetry 2022-10-04 16:03:00 97 /min [facility] Body weight 2022-10-04 02:20:00 90.629 kg [facility] Procedures Procedure Date / Time Performed Performing Clinician Source CT, head, w/o contrast 2023-05-11 [facility] LDCT, chest, for lung cancer screening 2022-12-13 00:00:00 [facility] LDCT, chest, for lung cancer screening 2022-10-20 00:00:00 [facility] XR, shoulder, 2 or more view 2022-10-14 00[facility]00[facility] XR, lumbosacral spine, 2 or 3 view 2022-10-14 00:00:00 [facility] EXTERNAL PROVIDER RECORDS 2022-10-11 05:01:00 Doctor Unassigned, [place] [facility] TROPONIN I 2022-10-04 09:33:00 Jhonatan Gutiérrez [facility] MAGNESIUM 2022-10-04 03:21:00 Jhonatan Gutiérrez [facility] TROPONIN I 2022-10-04 03:21:00 Jhonatan Gutiérrez [facility] THYROID STIMULATING HORMONE 2022-10-04 03:21:00 Jhonatan Gutiérrez [facility] HEPATIC FUNCTION PANEL (41994) (ALB,T.PRO,BILI T,BU/BC,ALT,AST,ALK PHOS) 2022-10-04 03:21:00 Jhonatan Gutiérrez [facility] BASIC METABOLIC PANEL (NA, K, CL, CO2, GLUCOSE, BUN, CREATININE, CA) 2022-10-04 03:21:00 Jhonatan Gutiérrez [facility] LIPID PANEL (98243)(TOTAL CHOLESTEROL, TRIGLYCERIDES, HDL) 2022-10-04 03:21:00 Jhonatan Gutiérrez [facility] CBC WITH DIFF 2022-10-04 03:21:00 Jhonatan Gutiérrez [facility] GLYCOSYLATED HEMOGLOBIN (A1C) 2022-10-04 03:21:00 Jhonatan Gutiérrez [facility] PROTHROMBIN TIME / INR 2022-10-04 03:21:00 Gerald Gutiérrez [facility] Plan of Care Planned Activity Planned Date Details Comments Source Diagnostic Test Pending 2023-05-11 00:00:00 CMP, serum or plasma [code = CMP, serum or plasma] [facility] Diagnostic Test Pending 2023-05-11 00:00:00 CBC w/ auto diff [code = CBC w/ auto diff] [facility] Diagnostic Test Pending 2023-05-11 00:00:00 microalbumin/creatin ine, mass ratio, urine [code = microalbumin/creatin ine, mass ratio, urine] [facility] Diagnostic Test Pending 2023-05-11 00:00:00 HbA1c (hemoglobin A1c), blood [code = HbA1c (hemoglobin A1c), blood] [facility] Diagnostic Test Pending 2023-05-11 00:00:00 lipid panel, serum [code = lipid panel, serum] [facility] Diagnostic Test Pending 2023-05-11 00:00:00 HIV 1 + 2, meaningful use set [code = HIV 1 + 2, meaningful use set] [facility] Diagnostic Test Pending 2023-05-11 00:00:00 vitamin B12 + folate, serum or blood [code = vitamin B12 + folate, serum or blood] [facility] Diagnostic Test Pending 2023-05-11 00:00:00 vitamin D, 25-hydroxy, total, serum [code = vitamin D, 25-hydroxy, total, serum] [facility] Encounters Start Date/Time End Date/Time Encounter Type Admission Type Attending [facility] Facility Care Department Encounter ID Source 2023-05-30 00:00:00 2023-05-30 00:00:00 Outpatient AYO HOLM [facility] [id number] [facility] 2023-05-11 00:00:00 2023-05-11 00:00:00 Zuri Brown, SENIOR OPERATIONS MANAGER: [address] [place] [address] , [facility]. [facility] [place] [address] [id number] [facility] 2023-05-04 00:00:00 2023-05-04 00:00:00 Outpatient SHIMEK_ZURI HOLM [facility] [id number] [facility] 2023-05-04 00:00:00 2023-05-04 00:00:00 Outpatient SHIMEK_ZURI HOLM [facility] [id number] [facility] 2022-12-13 00:00:00 2022-12-13 00:00:00 Outpatient SHIMEK_ZURI HOLM [facility] [id number] [facility] 2022-12-13 00:00:00 2022-12-13 00:00:00 Outpatient SHIMEK_ZURI HOLM [facility] [id number] [facility] 2022-12-13 00:00:00 2022-12-13 00:00:00 Outpatient SHIMEK_ZURI _ANN [facility] [id number] [facility] 2022-12-13 00:00:00 2022-12-13 00:00:00 Outpatient SHIMEK_ZURI _ANÍBAL [facility] [id number] [facility] 2022-12-13 00:00:00 2022-12-13 00:00:00 Zuri Brown, SENIOR OPERATIONS MANAGER: [address] [place] [address] , Ph. [place] [address] [id number] [facility] 2022-12-07 00:00:00 2022-12-07 00:00:00 Outpatient WILLI_ZURI HOLM [facility] [id number] [facility] 2022-12-06 00:00:00 2022-12-06 00:00:00 Outpatient Aryanatasha [facility] [id number] [facility] 2022-10-20 00:00:00 2022-10-20 00:00:00 Jerome Ramsay: [address] [place] [address] , Ph. [facility] [id number] [facility] 2022-10-15 00:00:00 2022-10-15 00:00:00 Outpatient Sobia_Amishnatasha [facility] [id number] [facility] 2022-10-14 00:00:00 2022-10-14 00:00:00 Outpatient Sobia_Jerome [facility] [id number] [facility] 2022-10-14 00:00:00 2022-10-14 00:00:00 Outpatient Saha_Amishnatasha [facility] [id number] [facility] 2022-10-14 00:00:00 2022-10-14 00:00:00 Jerome Ramsay: [address] [place] [address] , Ph. [facility] [id number] [facility] 2022-10-13 00:00:00 2022-10-13 00:00:00 Outpatient Sobia_Jerome [facility] [id number] [facility] 2022-10-11 00:00:00 2022-10-11 00:00:00 Orders Only Doctor Unassigned, [place] [facility] [id number] [facility] 2022-10-06 00:00:00 2022-10-06 00:00:00 Outpatient Saha_Andrea [facility] [id number] [facility] 2022-10-06 00:00:00 2022-10-06 00:00:00 Outpatient Saha_Andrea [facility] [id number] [facility] 2022-10-06 00:00:00 2022-10-06 00:00:00 Outpatient Sobia_Amisha [facility] [id number] [facility] 2022-10-03 20:46:00 2022-10-04 17:19:00 Outpatient U KEITH SIMMONS [facility] [id number] [facility] 2022-10-03 20:46:00 2022-10-04 17:19:00 [id number] [facility] Results Test Description Test Time Test Comments Results Result Co mments Source [facility] Auto Differential panel - Blood 2022-10-16 [...] immature cells (test code = immature cells) surgical supplies sterilizer Neutrophils [#/volume] in Bl ood by Automated [...] Blood by Automated count (test code = 85707-7) 0 % not estab. Immature granulocytes [#/volume] in Blood by Automated count (test code = 09917-2) 0.0 x10e3/uL 0.0-0.1 Nucleated erythrocytes/100 leukocytes [Ratio] in Blood by Automated count (test code = 80429-6) surgical supplies sterilizer Morphology [Interpretation] in Blood Narrative (test code = 19855-4) surgical supplies sterilizer [facility] ProgramComprehensive metabolic 2000 panel - Serum or [id number] 00:00:00* Test Item Value Reference Range Interpretation [...] Creatinine-based formula (CKD-EPI 2020) (test code = 88982-0) 88 mL/min/1.73 >59 Urea nitrogen/Creatinine [Ma ss [...] Ser um or Plasma (test code = 12015-8) 9.2 mg/dL 8.6-10.2 Protein [Mass/volume] in Ser um or Plasma (test code = 2885-2) 7.0 g/dL 6.0-8.5 Albumin [Mass/volume] in Ser um or Plasma (test code = 1751-7) 4.5 g/dL 3.8-4.8 Globulin [Mass/volume] in Serum by calculation (test code = 14256-1) 2.5 g/dL 1.5-4.5 Albumin/Globulin [Mass Ratio ] in Serum or Plasma (test code = 1759-0) 1.8 1.2-2.2 Bilirubin.total [Mass/volume ] in Serum or Plasma (test code = 1975-2) 0.7 mg/dL 0.0-1.2 Alkaline phosphatase [Enzymatic activity/volume] in Serum or Plasma (test code = 6768-6) 72 IU/L 44-121 Aspartate aminotransferase [Enzymatic activity/volume] in Serum or Plasma (test code = 1920-8) 11 IU/L 0-40 Alanine aminotransferase [Enzymatic activity/volume] in Serum or Plasma (test code = 1742-6) 11 IU/L 0-44 [facility] - Serum or Plasma 2022-10-16 [...] or Plasma by calculation (test code = 73019-6) 17 mg/dL 5-40 Cholesterol in LDL [Mass/vol ume] in Serum or Plasma by calculation (test code = 74166-0) 103 mg/dL 0-99 H Laboratory comment [Text] in Report Narrative (test code = 53629-6) surgical supplies sterilizer [facility] ProgramFolate+Cyanocobalamin [Interpretation] in Serum or [id number] 00:00:00* Test Item Value Reference Range Interpretation Comme nts Cobalamin (Vitamin B12) [Mass/volume] in Serum or Plasma (test code = 2132-9) 350 pg/mL 232-1245 Folate [Mass/volume] in Seru m or Plasma (test code = 2284-8) 3.8 NG/mL >3.0 [facility], serum or [id number] 00:00:00* Test Item Value Reference Range Interpretation Comme nts Prostate specific Ag [Mass/v olume] in Serum or Plasma (test code = 2857-1) 0.3 NG/mL 0.0-4.0 reflex criteria (test code = reflex criteria) comment [facility] A[facility]/Hemoglobin.total in [id number] 00:00:00* Test Item Value Reference Range Interpretation Comme nts Hemoglobin A1c/Hemoglobin.to constance in Blood (test code = 4548-4) 5.1 % 4.8-5.6 [facility]25-Hydroxyvitamin D3+25- Hydroxyvitamin D2 [Mass/volume] in Serum or [id number] 00:00:00* Test Item Value Reference Range Interpretation Comme nts 25-Hydroxyvitamin D3+25-Hydroxyvitamin D2 [Mass/volume] in Serum or Plasma (test code = 90536-6) 25.3 NG/mL 30.0-100.0 L [facility]ure[facility] peptide B [Mass/volume] in Serum or [id number] 00:00:00* Test Item Value Reference Range Interpretation Comme nts Natriuretic peptide B [Mass/volume] in Serum or Plasma (test code = 34671-2) 12.2 pg/mL 0.0-100.0 [facility] ProgramUrate [Mass/volume] in Serum or [id number] 00:00:00* Test Item Value Reference Range Interpretation Comme nts Urate [Mass/volume] in Serum or Plasma (test code = 3084-1) 5.8 mg/dL 3.8-8.4 [facility] panel, [id number] 00:00:00* Test Item Value Reference Range Interpretation Comme nts Interpretation and review of laboratory results (test code = 23500-2) note Report (test code = 50279-4) . [facility] [id number] 10:09:21* Test Item Value Reference Range Interpretation Comme nts TROPONIN I (test code = 1847784403) 0.003 ng/mL <=0.034 TERESA (test code = [...] of biotin. Lab Interpretation (test code = 56036-5) Normal [facility]
[2024-08-19 12:27] LABS: Influenza A Ag Negative; Influenza B Ag Negative; SARS-CoV-2 Antigen Rapid Res Negative (Negative)
--- NOTE | 2024-08-19 13:09 | RAD REPORT ---
Procedure: Chest Pa And Lat (2 Views) HISTORY: Cough COMPARISON: 2022 FINDINGS: The lungs appear clear of acute infiltrate. Calcified granuloma right lung No significant pleural effusion noted. The heart is normal size. IMPRESSION: No acute abnormality is displayed.
--- NOTE | 2024-08-19 13:21 | ER ---
Nurse's Notes [facility] Name: Raghu Garcia Age: 63 yrs Sex: Male : 1960 Arrival Date: 08/19/2024 Time: : Bed IW2 Private MD: Diagnosis: Cough Presentation: 08/19 11:44 Chief complaint: Productive cough, congestion, and sore throat x 1 week, SOB today. hb Coronavirus screen: Client presents with at least one sign or symptom that may indicate coronavirus-19. Standard/surgical mask placed on the client. Provider contacted for isolation considerations. Ebola Screen: No symptoms or risks identified at this time. Initial Sepsis Screen: Does the patient meet any 2 criteria? No. Patient's initial sepsis screen is negative. Does the patient have a suspected source of infection? No. Patient's initial sepsis screen is negative. Risk Assessment: Do you want to hurt yourself or someone else? Patient reports no desire to harm self or others. Onset of symptoms was August 12, 2024. 11:44 Method Of Arrival: Ambulatory hb 11:44 Acuity: GIDEON 4 hb Historical: - Allergies: 11:46 No Known Allergies; hb - Home Meds: 11:46 lisinopril 5 mg oral tablet daily [Active]; sertraline 50 mg oral tablet daily [Active];hb - PMHx: 11:46 Hypertensive disorder; hb - PSHx: 11:46 None; hb - Immunization history:: Adult Immunizations up to date. - Infectious Disease History:: Denies. - Social history:: Smoking status: Patient reports the use of cigarette tobacco products. Screenin:27 [facility] ED Fall Risk Assessment (Adult) History of falling in the last 3 months, db including since admission No falls in past 3 months (0 pts) Confusion or Disorientation No (0 pts) Intoxicated or Sedated No (0 pts) Impaired Gait No (0 pts) Mobility Assist Device Used No (0 pt) Altered Elimination No (0 pt) Score/Fall Risk Level 0 - 2 = Low Risk Oriented to surroundings, Maintained a safe environment. Abuse screen: Denies threats or abuse. Denies injuries from another. Nutritional screening: No deficits noted. Tuberculosis screening: No symptoms or risk factors identified. Assessment: 13:27 Reassessment: Patient appears in no apparent distress at this time. Patient and/or db family updated on plan of care and expected duration. Pain level reassessed. Patient is alert, oriented x 3, equal unlabored respirations, skin warm/dry/pink. General: Appears in no apparent distress. comfortable, Behavior is calm, cooperative. Pain: Denies pain. Vital Signs: 11:44 BP 119 / 78; Pulse 86; Resp 18; Temp 97.9(O); Pulse Ox 96% on R/A; Weight 86.18 kg; hb Height 5 ft. 5 in. ; Pain 8/10; 11:44 Body Mass Index 31.62 (86.18 kg, 165.1 cm) hb 11:44 Pain Scale: Adult hb ED Course: 11:11 Patient arrived in ED. im 11:18 Jone Quinn PA is PHCP. cp 11:18 Jone Whatley MD is Attending Physician. cp 11:46 Triage completed. hb 11:47 Arm band placed on. hb 12:26 XRAY Chest Pa And Lat (2 Views) In Process Unspecified. EDMS 13:27 Patient has correct armband on for positive identification. Provided Education on: db DISCHARGE AND FOLLOWUP. 13:27 No provider procedures requiring assistance completed. Patient did not have IV access db during this emergency room visit. Administered Medications: No medications were administered Medication: 13:27 VIS not applicable for this client. db Outcome: 13:20 Discharge ordered by MD. cp 13:27 Discharged to home ambulatory, with family, db 13:27 Condition: stable 13:27 Discharge instructions given to patient, Instructed on discharge instructions, follow up and referral plans. Prescriptions given X 2, 13:30 Patient left the ED. db Signatures: Dispatcher [employer] EDMS Jone Quinn PA PA cp Quita Lizarraga RN RN hb Mana Ledezma RN RN db Haley Ochoa im Corrections: (The following items were deleted from the chart) 11:57 11:44 Acuity: GIDEON 3 hb hb
--- NOTE | 2024-08-19 13:21 | EDPHYS ---
Physician Documentation [facility] Name: Raghu Garcia Age: 63 yrs Sex: Male : 1960 Arrival Date: 08/19/2024 Time: 11: Bed IW2 Private MD: Jone Davies HPI: 08/19 11:55 This 63 yrs old Male presents to ER via Ambulatory with complaints of Cough. cp 11:55 The patient or guardian reports cough, that is intermittent, with productive sputum. cp Onset: The symptoms/episode began/occurred 1 week(s) ago. 11:55 Associated signs and symptoms: Pertinent positives: sore throat, Pertinent negatives: cp chest pain, fever, vomiting. Historical: - Allergies: 11:46 No Known Allergies; hb - Home Meds: 11:46 lisinopril 5 mg oral tablet daily [Active]; sertraline 50 mg oral tablet daily [Active];hb - PMHx: 11:46 Hypertensive disorder; hb - PSHx: 11:46 None; hb - Immunization history:: Adult Immunizations up to date. - Infectious Disease History:: Denies. - Social history:: Smoking status: Patient reports the use of cigarette tobacco products. ROS: 12:00 Constitutional: Negative for body aches, chills, fever, poor PO intake, cp 12:00 Eyes: Negative for injury, pain, redness, and discharge, cp 12:00 ENT: Positive for sore throat, Negative for drainage from ear(s), ear pain, difficulty swallowing, difficulty handling secretions, 12:00 Respiratory: Positive for cough, Negative for shortness of breath, wheezing, 12:00 Abdomen/GI: Negative for abdominal pain, vomiting, diarrhea, constipation, 12:00 Neuro: Negative for altered mental status, dizziness, headache, weakness, 12:00 All other systems are negative, Exam: 12:05 Constitutional: The patient appears in no acute distress, alert, awake, cp non-diaphoretic, non-toxic, well developed, well nourished, 12:05 Head/Face: Normocephalic, atraumatic. cp 12:05 Eyes: Periorbital structures: appear normal, Conjunctiva: normal, no exudate, no injection, Sclera: no appreciated abnormality, Lids and lashes: appear normal, bilaterally, 12:05 ENT: External ear(s): are unremarkable, Ear canal(s): are normal, clear, TM's: dullness, bilaterally, Nose: is normal, Mouth: Lips: moist, Oral mucosa: moist, Posterior pharynx: Airway: no evidence of obstruction, patent, Tonsils: mild erythema, no enlargement, no exudate, erythema, that is mild, exudate, is not appreciated, 12:05 Neck: ROM/movement: Meningeal signs: are not present, nuchal rigidity, is not appreciated, Lymph nodes: no appreciated lymphadenopathy, 12:05 Chest/axilla: Inspection: normal, 12:05 Cardiovascular: Rate: normal, Rhythm: regular, Edema: is not appreciated, JVD: is not appreciated, 12:05 Respiratory: the patient does not display signs of respiratory distress, Respirations: normal, no use of accessory muscles, no retractions, labored breathing, is not present, Breath sounds: are clear throughout, no decreased breath sounds, no stridor, no wheezing, 12:05 Abdomen/GI: Inspection: abdomen appears normal, Palpation: abdomen is soft and non-tender, in all quadrants, 12:05 Neuro: Orientation: to person, place \T\ time. Mentation: is normal, Vital Signs: 11:44 BP 119 / 78; Pulse 86; Resp 18; Temp 97.9(O); Pulse Ox 96% on R/A; Weight 86.18 kg; hb Height 5 ft. 5 in. ; Pain 8/10; 11:44 Body Mass Index 31.62 (86.18 kg, 165.1 cm) hb 11:44 Pain Scale: Adult hb MDM: 11:45 Medical Screening Exam initiated cp 13:20 Data reviewed: vital signs, nurses notes, lab test result(s), radiologic studies, plain cp films, and as a result, I will discharge patient. 13:20 Counseling: I had a detailed discussion with the patient and/or guardian regarding the cp historical points, exam findings, and any diagnostic results supporting the discharge/admit diagnosis, lab results, radiology results, to return to the emergency department if symptoms worsen or persist or if there are any questions or concerns that arise at home. 08/19 11:52 Order name: COVID-19 Ag + Flu A+B Ag; Complete Time: 13:19 cp 08/19 13:19 Interpretation: Reviewed. cp 08/19 11:52 Order name: XRAY Chest Pa And Lat (2 Views); Complete Time: 13:19 cp Administered Medications: No medications were administered Disposition Summary: 08/19/24 13:20 Discharge Ordered Notes: Location: Home cp Problem: new cp Symptoms: are unchanged cp Condition: Stable cp Diagnosis - Cough cp Followup: cp - With: Private Physician - When: 2 - 3 days - Reason: Worsening of condition Discharge Instructions: - Discharge Summary Sheet cp - Cough, Adult cp Forms: - Medication Reconciliation Form cp - Antibiotic Education cp - Prescription Opioid Use cp - Patient Portal Instructions cp - Leadership Thank You Letter cp Prescriptions: - Tessalon Perles 100 mg Oral capsule - take 2 capsule ORAL route every 8 hours As needed; 30 capsule; Refills: 0, cp Product Selection Permitted - Zithromax Z-Pelon 250 mg Oral Tablet - take 1 tablet ORAL route as directed for 5 days Day 1 - take two (2) tablets cp one time. Day 2, 3, 4 , 5 take one (1) tablet once daily.; 6 tablet; Refills: 0, Product Selection Permitted Signatures: Dispatcher [employer] EDMS Jone Quinn PA PA cp Quita Lizarraga, RN RN Corrections: (The following items were deleted from the chart) 08/20 13:06 08/19 11:10 Constitutional: Negative for body aches, chills, fever, poor PO intake, cp cp
[2024-08-19 13:46] VITALS: BP 119/78; TEMP 97.9; O2SAT 96
== END 2024-08-19 13:30 | disposition home or self-care (01) ==
LOC: ER 11:09
DX: R05.9 Cough, unspecified (principal); Z11.52 Encounter for screening for COVID-19; Z72.0 Tobacco use
CPT/HCPCS: 36415; 71046; 87428; 99283